=== PATIENT | female | born 1955 | race Hispanic/Latino ===

== ENCOUNTER 2019-01-21 21:12 | Inpatient (IN) | payer MEDICARE, MEDICAID ==
--- NOTE | 2019-01-21 21:25 | Emergency Department Report ---
Blank Doc - Documentation Documentation: This is a 63-year-old female that presents with uncontrolled HTN. Patient stated she believes she has a stroke. Exam: neuro exam normal. Normal strength. No focal neuro abnormalities. No one sided weakness. This initial assessment/diagnostic orders/clinical plan/treatment(s) is/are subject to change based on patient's health status, clinical progression and re- assessment by fellow clinical providers in the ED. Further treatment and workup at subsequent clinical providers discretion. Patient/guardians urged not to elope from the ED as their condition may be serious if not clinically assessed and managed. Initial orders include: 1- Patient sent to [facility] for further evaluation and treatment 2- labs 3- CT of head
[2019-01-21] MEDS ORDERED: NORMODYNE IV ONE (22:11)
[2019-01-21] MEDS ORDERED: ASPIRIN PO ONE (22:14)
--- NOTE | 2019-01-21 22:14 | Cat Scan Report ---
PROCEDURE: CT HEAD/BRAIN WO CON TECHNIQUE: CT images of the head were obtained without the use of IV contrast HISTORY: Stroke symptoms COMPARISONS: None available FINDINGS: No CT evidence of intracranial mass, hemorrhage, acute territorial infarction, or hydrocephalus. Ther e is asymmetric white matter low density in the left frontoparietal region, compatible with chronic i nfarct. There is also focal encephalomalacia in the posterior left occipital lobe. There is no CT edgardo dence of acute intracranial hemorrhage, mass, hydrocephalus, or acute territorial infarction. Intracr anial arteries are symmetric in density. Calvarium is intact. The visualized paranasal sinuses and ma stoids are aerated. IMPRESSION: Chronic ischemic changes. No CT evidence of acute intracranial abnormality. This document is electronically signed by Nava Walton MD., January 21 2019 10:12:12 PM ET
--- NOTE | 2019-01-21 22:15 | Emergency Department Report ---
ED Neuro Deficit HPI - General Chief Complaint: Neuro Symptoms/Deficit Stated Complaint: ELEVATED BLOOD PRESSURE Time Seen by Provider: 01/21/19 21:22 Source: patient Mode of arrival: Ambulatory Limitations: No Limitations - History of Present Illness Initial Comments: * Patient is a 63-year-old female past history of hypertension and previous CVA with right-sided deficit in 2006 with probable stenting to the left carotid who is presenting with right sided numbness and mild weakness for the past 2 hours. Patient states that throughout before arrival she was sitting at home watching television she started feeling numb sensation in the right arm or right leg. Patient states she has weakness that is mild. Patient also states she has a headache as 6 out of 10 in severity globally. Patient hasn't A she is speaking. Patient feels as though she is in the early stages of a stroke and wrote this as her chief complaint. Patient denies any nausea vomiting fevers chills neck Stiffness, cold or congestion at this time. - Related Data Allergies/Adverse Reactions: Allergies Allergy/AdvReac Type Severity Reaction Status Date / Time iodine Allergy Hives Verified 01/21/19 22:50 Penicillins Allergy Anaphylaxis Verified 01/21/19 21:27 Sulfa (Sulfonamide Allergy Hives Verified 01/21/19 21:27 Antibiotics) ED Review of Systems ROS: Stated complaint: ELEVATED BLOOD PRESSURE Other details as noted in HPI Comment: All other systems reviewed and negative ED Past Medical Hx - Past Medical History Previous Medical History?: Yes Hx Hypertension: Yes Hx CVA: Yes (TIA) Hx Diabetes: Yes Hx Psychiatric Treatment: Yes (Depression) - Surgical History Past Surgical History?: Yes Hx Open Heart Surgery: Yes Additional Surgical History: Hysterectomy - Social History Smoking Status: Former Smoker Substance Use Type: None ED Neuro Physical Exam - General Limitations: No Limitations General appearance: alert, in no apparent distress Suspected Stroke: Yes - Head Head exam: Present: atraumatic, normocephalic - Eye Eye exam: Present: normal appearance - ENT ENT exam: Present: mucous membranes moist - Neck Neck exam: Present: normal inspection. Absent: tenderness, meningismus - Respiratory Respiratory exam: Present: normal lung sounds bilaterally. Absent: respiratory distress, wheezes, rales - Cardiovascular Cardiovascular Exam: Present: regular rate, normal rhythm, normal heart sounds. Absent: systolic murmur, diastolic murmur, rubs, gallop - GI/Abdominal GI/Abdominal exam: Present: soft, normal bowel sounds. Absent: distended, tenderness, guarding - Extremities Exam Extremities exam: Present: normal inspection - Back Exam Back exam: Present: normal inspection - Neurological Exam Neurological exam: Present: alert, oriented X3, CN II-XII intact, normal gait, motor sensory deficit - NIHSS Assessment Interval: Baseline 1a. Level of Consciousness: alert/keenly responsive 1b. LOC Questions: answers both correctly 1c. LOC Commands: performs tasks correctly 2. Best Gaze: normal 3. Visual: no visual loss 4. Facial Palsy: normal symmetrical movement 5b. Motor Arm Right: drift 5a. Motor Arm Left: no drift 6a. Motor Leg Left: no drift 6b. Motor Leg Right: drift 7. Limb Ataxia: absent 8. Sensory: mild/moderate sensory loss 9. Best Language: no aphasia 10. Dysarthria: normal 11. Extinction/Inattention: no abnormality Total Score: 3 Stroke Severity: Minor Stroke - Psychiatric Psychiatric exam: Present: normal affect, normal mood - Skin Skin exam: Present: warm, dry, intact, normal color. Absent: rash ED Course Vital Signs 01/21/19 01/21/19 21:22 22:46 Temperature 98.1 F Pulse Rate 77 79 Respiratory 18 Rate Blood Pressure 162/72 235/90 O2 Sat by Pulse 99 Oximetry - Reevaluation(s) Reevaluation #1: 01/21/19 22:15 Patient was seen by telephone neurology who had a NIH score 5. The discussion was had between the toe neurologist and patient and suggested that the patient to have TPA. Patient is a and O 3 and has refused TPA. Per my conversation with Tylenol neurology patient should receive aspirin and a CTA of the head and neck to rule out fresh clot that could be potentially remove so she is in the window. - Lab Data Result diagrams: 01/21/19 22:04 01/21/19 22:04 Lab Results 01/21/19 01/21/19 01/21/19 Range/Units 21:55 22:04 22:04 WBC 6.8 (4.5-11.0) K/mm3 RBC 3.81 (3.65-5.03) M/mm3 Hgb 12.1 (10.1-14.3) gm/dl Hct 35.3 (30.3-42.9) % MCV 93 (79-97) fl MCH 32 (28-32) pg MCHC 34 (30-34) % RDW 13.4 (13.2-15.2) % Plt Count 115 L (140-440) K/mm3 Lymph % (Auto) 26.6 (13.4-35.0) % Cherokee % (Auto) 8.2 H (0.0-7.3) % Eos % (Auto) 1.2 (0.0-4.3) % Baso % (Auto) 0.7 (0.0-1.8) % Lymph # 1.8 (1.2-5.4) K/mm3 [place] # 0.6 (0.0-0.8) K/mm3 Eos # 0.1 (0.0-0.4) K/mm3 Baso # 0.0 (0.0-0.1) K/mm3 Seg Neutrophils % 63.3 (40.0-70.0) % Seg Neutrophils # 4.3 (1.8-7.7) K/mm3 PT (12.2-14.9) Sec. INR (0.87-1.13) APTT (24.2-36.6) Sec. Thrombin Time (15.1-19.6) Sec. Sodium 137 (137-145) mmol/L Potassium 3.9 (3.6-5.0) mmol/L Chloride 99.4 (98-107) mmol/L Carbon Dioxide 24 (22-30) mmol/L Anion Gap 18 mmol/L BUN 23 H (7-17) mg/dL Creatinine 1.1 (0.7-1.2) mg/dL Estimated GFR 50 ml/min BUN/Creatinine Ratio 21 % Glucose 353 H (65-100) mg/dL POC Glucose 316 H (70-105) Calcium 9.1 (8.4-10.2) mg/dL Total Creatine Kinase (30-135) units/L CK-MB (CK-2) (0.0-4.0) ng/mL CK-MB (CK-2) Rel Index (0-4) Troponin T (0.00-0.029) ng/mL Plasma/Serum Alcohol (0-0.07) % 01/21/19 01/21/19 01/21/19 Range/Units 22:04 22:04 22:04 WBC (4.5-11.0) K/mm3 RBC (3.65-5.03) M/mm3 Hgb (10.1-14.3) gm/dl Hct (30.3-42.9) % MCV (79-97) fl MCH (28-32) pg MCHC (30-34) % RDW (13.2-15.2) % Plt Count (140-440) K/mm3 Lymph % (Auto) (13.4-35.0) % Cherokee % (Auto) (0.0-7.3) % Eos % (Auto) (0.0-4.3) % Baso % (Auto) (0.0-1.8) % Lymph # (1.2-5.4) K/mm3 Cherokee # (0.0-0.8) K/mm3 Eos # (0.0-0.4) K/mm3 Baso # (0.0-0.1) K/mm3 Seg Neutrophils % (40.0-70.0) % Seg Neutrophils # (1.8-7.7) K/mm3 PT 12.5 (12.2-14.9) Sec. INR 0.88 (0.87-1.13) APTT 22.9 L (24.2-36.6) Sec. Thrombin Time 17.9 (15.1-19.6) Sec. Sodium (137-145) mmol/L Potassium (3.6-5.0) mmol/L Chloride (98-107) mmol/L Carbon Dioxide (22-30) mmol/L Anion Gap mmol/L BUN (7-17) mg/dL Creatinine (0.7-1.2) mg/dL Estimated GFR ml/min BUN/Creatinine Ratio % Glucose (65-100) mg/dL POC Glucose (70-105) Calcium (8.4-10.2) mg/dL Total Creatine Kinase 33 (30-135) units/L CK-MB (CK-2) 1.7 (0.0-4.0) ng/mL CK-MB (CK-2) Rel Index 5.1 H (0-4) Troponin T < 0.010 (0.00-0.029) ng/mL Plasma/Serum Alcohol < 0.01 (0-0.07) % - EKG Data -: EKG Interpreted by De EKG shows normal: sinus rhythm, axis, intervals, QRS complexes, ST-T waves Rate: normal Interpretation: LVH - Radiology Data [facility] [address] [id number] Cat Scan Report Signed with Addenda Patient: JOSHUA DURHAM MR#: [id number] : 1955 Acct:[id number] Age/Sex: 63 / F ADM Date: 01/21/19 Loc: ED Attending Dr: Ordering Physician: TEENA GRANGER MD Date of Service: 01/21/19 Procedure(s): CT head/brain wo con Accession Number(s): [id number] cc: TEENA GRANGER MD ADDENDUM ADDENDUM: Findings were relayed to Dr. Granger by telephone at 9:12 PM central standard time on 01/21/2019 This document is electronically signed by aNva Walton MD., January 21 2019 10:20:10 PM ET Addendum Transcribed By: [facility] Addendum Dictated By: NAVA WALTON M.D. Addendum Electronically Authenticated By: NAVA WALTON M.D. Addendum Signed Date/Time: 01/21/192221 DD/ TD/TT: 01/21/19 PROCEDURE: CT HEAD/BRAIN WO CON TECHNIQUE: CT images of the head were obtained without the use of IV contrast HISTORY: Stroke symptoms COMPARISONS: None available FINDINGS: No CT evidence of intracranial mass, hemorrhage, acute territorial infarction, or hydrocephalus. There is asymmetric white matter low density in the left frontoparietal region, compatible with chronic infarct. There is also focal encephalomalacia in the posterior left occipital lobe. There is no CT evidence of acute intracranial hemorrhage, mass, hydrocephalus, or acute territorial infarction. Intracranial arteries are symmetric in density. Calvarium is intact. The visualized paranasal sinuses and mastoids are aerated. IMPRESSION: Chronic ischemic changes. No CT evidence of acute intracranial abnormality. This document is electronically signed by Nava Walton MD., January 21 2019 10:12:12 PM ET Transcribed By: [facility] Dictated By: NAVA WALTON M.D. Electronically Authenticated By: NAVA WALTON M.D. Signed Date/Time: 01/21/192213 DD/ 58 TD/TT: 01/21/192199 - Medical Decision Making The patient is a 63-year-old female is presenting with right-sided weakness and numbness. Patient refused TPA and she is a and O 3. Patient's stability admitted to the hospitalist service under Dr. Neal. Total neurology suggested a CTA of the head and neck be performed however the patient has allergy to dye which causes anaphylaxis. Critical care attestation.: If time is entered above; I have spent that time in minutes in the direct care of this critically ill patient, excluding procedure time. ED Disposition Clinical Impression: Thrombosis of left middle cerebral artery CVA (cerebral vascular accident) Qualifiers: CVA mechanism: unspecified Qualified Code(s): I63.9 - Cerebral infarction, unspecified Disposition: DC-09 OP ADMIT IP TO THIS HOSP Is pt being admited?: Yes Does the pt Need Aspirin: No Condition: Stable Time of Disposition: 23:15
[2019-01-21 22:22] LABS: Eosinophils % (Auto) 1.2 % (0.0-4.3); Hematocrit 35.3 % (30.3-42.9); Hemoglobin 12.1 gm/dl (10.1-14.3); Lymphocytes % (Auto) 26.6 % (13.4-35.0); Mean Corpuscular HGB Conc 34 % (30-34); Mean Corpuscular Volume 93 fl (79-97); Monocytes % (Auto) 8.2 % (0.0-7.3); Platelet Count 115 K/mm3 (140-440); Red Blood Count 3.81 M/mm3 (3.65-5.03); Red Cell Distribution Width 13.4 % (13.2-15.2)
[2019-01-21 22:23] LABS: Basophils % (Auto) 0.7 % (0.0-1.8); Eosinophils # (Auto) 0.1 K/mm3 (0.0-0.4); INR 0.88 (0.87-1.13); Lymphocytes # (Auto) 1.8 K/mm3 (1.2-5.4); Monocytes # (Auto) 0.6 K/mm3 (0.0-0.8)
[2019-01-21 22:24] LABS: Partial Thromboplastin Time 22.9 Sec. (24.2-36.6); Thrombin Time 17.9 Sec. (15.1-19.6)
[2019-01-21] MEDS ORDERED: BABY ASPIRIN PO ONE (22:26)
--- NOTE | 2019-01-21 22:26 | Emergency Department Report ---
ED Neuro Deficit HPI - General Chief Complaint: Neuro Symptoms/Deficit Stated Complaint: ELEVATED BLOOD PRESSURE Time Seen by Provider: 01/21/19 21:22 Source: patient Mode of arrival: Stretcher Limitations: No Limitations - History of Present Illness Initial Comments: [facility] TeleStroke Metrics: LKW: 1900 Door Time: 2111 [facility] Contacted: 2153 [facility] at Bedside: 2158 NIHSS: 2203 Decision on Alteplase: Patient has deferred IV alteplase administration due to concerns of bleeding. Interventional Candidate: Likely not a candidate as her symptoms are not consistent with a large vessel proximal occlusion. No evidence of cortical signs to include vision loss, neglect, or aphasia. Chief Complaint: Right-sided weakness and numbness HPI: Asked to see this patient in telemedicine consultation. ?Consultation was performed with assistance of ancillary / medical staff at bedside. Verbal consent to perform the examination with telemedicine was obtained. Patient agreed to proceed with the consultation. 63-year-old right-handed white female who comes to the ER by EMS as a stroke alert for acute right-sided weakness and numbness. Patient reports a history of prior left hemisphere stroke in 2006 where she had right-sided weakness. She states that after aggressive therapy, she has mostly recovered from her previous stroke. She also states that she had some type of stent placed in her neck around the time of her stroke. However, she states that her stroke happened right after a heart attack. Patient is currently on Plavix. Patient also states she recently quit smoking about 2 to 3 weeks ago. Patient states that around 7 PM, she had severe right-sided weakness and numbness again. She states that over the last 3 days, she has been dealing with significant elevations in her blood pressures with systolics in the 200s. However, currently she is around 162/[address] in the ER. Head CT came back negative. I reviewed with the patient about the availability of IV alteplase. I reviewed with her about some of the potential side effects of IV alteplase to include an approximate 6% risk of symptomatic intracranial hemorrhage, internal bleeding, and/or angioedema. I also reviewed with her about some of the potential benefits of IV alteplase to include an approximate 30% chance of improvement at 3 months with the medication versus an approximate 20% chance of improvement at 3 months without the medication. At the end of the day, the patient was concerned about internal bleeding. She therefore had deferred IV alteplase administration. PMH: Hypertension, diabetes mellitus, coronary artery disease with prior UT and CABG, and prior left hemisphere stroke in 2006 with possible left ICA stenting SOC: Patient recently quit smoking 2 to 3 weeks ago. She denies any illicit drug use or alcohol abuse. She lives alone. FMH: Positive for stroke. ROS: 13 point review systems were reviewed with the patient, and are all negative with the exception of the aforementioned in the history of present illness. VS: Temperature is 98.1 F, pulse 77, respiration 18, blood pressure 162/72, oxygen saturation 9 9%, weight 43 kg Exam: Patient is in no apparent distress. Patient appears as stated age. No obvious acute respiratory or cardiac distress. Patient is well groomed and well-nourished. 1a- LOC: Keenly responsive - 0 1b- LOC questions: Answers both questions correctly - 0 1c- LOC commands- Performs both tasks correctly- 0 2- Gaze: Normal; no gaze paresis or gaze deviation - 0 3- Visual Ye: normal, no Visual field deficit - 0 4- Facial movements: no facial palsy - 0 5- Upper limb motor right arm drift - 2 6- Lower limb motor right leg drift - 2 7- Limb Coordination: absent ataxia - 0 8- Sensory: right hemisensory loss - 1 9- Language - No aphasia - 0 10- Speech - No dysarthria -0 11- Neglect / Extinction - none found - 0 NIHSS score: 5 Diagnostic Data: Blood glucose 316 CT of the head showed no acute intracranial process. Medical Data Reviewed: 1.Data?reviewed include clinical labs, radiology,?and medical tests; 2.Tests?results discussed w/performing or interpreting physician; 3.Obtaining/reviewing old medical records; 4.Obtaining?case history from another source; 5.Independent?review of image, tracing, or specimen. Medical Decision Making: - Extensive number of diagnosis or management options are considered below. - Extensive amount of complex data reviewed. - High risk of complication and/or morbidity or mortality are associated with differential diagnostic considerations below. - There may be?uncertain?outcome and increased probability of prolonged fun ctional impairment or high probability of severe prolonged functional impairment associated with some of these differential diagnosis. Differential Diagnosis for Stroke: 1.?Cardioembolic?stroke 2. Small vessel disease/lacune 3. Thromboembolic, [id number] mechanism 4.?Hypercoagulable?state-related infarct 5. Transient ischemic attack 6. Thrombotic mechanism, large artery disease Assessment: 1. Probable acute left subcortical stroke due to chronic small vessel disease 2. Prior left hemispheric stroke in 2006 with possible left ICA stenting 3. Hypertension 4. Diabetes mellitus 5. Coronary artery disease status post CABG 6. Recent tobacco abuse Recommendations: Check CTA of the head and neck to evaluate her intracranial and extracranial blood vessels. Patient can be admitted to the hospital for further work-up of her symptoms. Maintain the patient on a baby aspirin and Plavix. Allow permissive hypertension. Check MRI of the brain to rule out any acute intracranial process. Check echocardiogram to gauge her cardiac function. Maintain the patient on telemetry to look for paroxysmal atrial fibrillation. Consult local neurology team to assist with evaluation and management. Consult PT, OT, and ST. Continue supportive care. Thank you for allowing [facility] to participate in the care of your patient. Please call me, Dr. Childs, with any questions at [phone]. Case discussed with the ER staff and Dr. Granger. Critical Care notation: I was called to see this critical patient emergently. I personally evaluated this critical patient for acute stroke evaluation, and determining their eligibility for IV Alteplase and interventional therapies. I have spent approximately 13 minutes with the patient, including time at bedside, time discussing the case with other physicians, reviewing plan of care, and time independently reviewing the records and scans. -: Sudden Last Observed Normal: 19:00 Location: right arm, right leg Presenting Symptoms: Present: Weak/Paralyzed One Side - Related Data Allergies/Adverse Reactions: Allergies Allergy/AdvReac Type Severity Reaction Status Date / Time Penicillins Allergy Anaphylaxis Verified 01/21/19 21:27 Sulfa (Sulfonamide Allergy Hives Verified 01/21/19 21:27 Antibiotics) ED Review of Systems ROS: Stated complaint: ELEVATED BLOOD PRESSURE Other details as noted in HPI ED Past Medical Hx - Past Medical History Previous Medical History?: Yes Hx Hypertension: Yes Hx CVA: Yes (TIA) Hx Diabetes: Yes Hx Psychiatric Treatment: Yes (Depression) - Surgical History Past Surgical History?: Yes Hx Open Heart Surgery: Yes Additional Surgical History: Hysterectomy - Social History Smoking Status: Former Smoker Substance Use Type: None ED Neuro Physical Exam - General Limitations: No Limitations Suspected Stroke: Yes - NIHSS Assessment Interval: Baseline 1a. Level of Consciousness: alert/keenly responsive 1b. LOC Questions: answers both correctly 1c. LOC Commands: performs tasks correctly 2. Best Gaze: normal 3. Visual: no visual loss 4. Facial Palsy: normal symmetrical movement 5b. Motor Arm Right: some gravity effort 5a. Motor Arm Left: no drift 6a. Motor Leg Left: no drift 6b. Motor Leg Right: some gravity effort 7. Limb Ataxia: absent 8. Sensory: mild/moderate sensory loss 9. Best Language: no aphasia 10. Dysarthria: normal 11. Extinction/Inattention: no abnormality Total Score: 5 Stroke Severity: Moderate Stroke ED Course Vital Signs 01/21/19 21:22 Temperature 98.1 F Pulse Rate 77 Respiratory 18 Rate Blood Pressure 162/72 O2 Sat by Pulse 99 Oximetry - Lab Data Lab Results 01/21/19 Range/Units 21:55 POC Glucose 316 H (70-105) Critical care attestation.: If time is entered above; I have spent that time in minutes in the direct care of this critically ill patient, excluding procedure time. ED Disposition Clinical Impression: Thrombosis of left middle cerebral artery Disposition: DC-09 OP ADMIT IP TO THIS HOSP Is pt being admited?: Yes Does the pt Need Aspirin: Yes Condition: Stable
[2019-01-21 22:28] LABS: Calcium 9.1 mg/dL (8.4-10.2)
[2019-01-21 22:30] LABS: Creatine Kinase MB 1.7 ng/mL (0.0-4.0)
[2019-01-21 23:49] LABS: Amphetamine Screen,Urine PRESUMPTIVE NEGATIVE; Benzodiazepines Screen,Urine PRESUMPTIVE NEGATIVE; Cannabinoid Screen,Urine PRESUMPTIVE NEGATIVE; Cocaine Screen,Urine PRESUMPTIVE NEGATIVE; Methadone Screen,Urine PRESUMPTIVE NEGATIVE; Opiate Screen,Urine PRESUMPTIVE NEGATIVE
[2019-01-21] MEDS ORDERED: MILK OF MAGNESIA PO PRN (23:51)
[2019-01-21] MEDS ORDERED: REGLAN PO PRN (23:51)
[2019-01-21] MEDS ORDERED: PHENERGAN PR PRN (23:51)
[2019-01-21] MEDS ORDERED: DULCOLAX PR PRN (23:51)
[2019-01-21] MEDS ORDERED: SODIUM CHLORIDE FLUSH SYRINGE 10 ML IV PRN (23:51)
[2019-01-21] MEDS ORDERED: D50W (25GM) Syringe IV PRN (23:51)
[2019-01-21] MEDS ORDERED: ZOFRAN IV PRN (23:51)
[2019-01-21] MEDS ORDERED: TYLENOL PO PRN (23:51)
[2019-01-21 23:53] LABS: Bacteria,Urine 1+ /HPF (Negative); Bilirubin,Urine NEG (Negative); Blood,Urine NEG (Negative); Color,Urine Straw (Yellow); Urobilinogen,Urine < 2.0 mg/dL (<2.0)
[2019-01-22] MEDS ORDERED: APRESOLINE IV ONE (00:19)
--- NOTE | 2019-01-22 00:26 | History and Physical Report ---
<ARGELIA OCHOA - Last Filed: 01/22/19 04:23> History of Present Illness Date of examination: 01/21/19 Date of admission: 01/21/19 23:08 Chief complaint: Right-sided weakness 1 Day History of present illness: Patient is a 63-year-old female with past medical history of prior CVA 2006, CAD/CABG 2006, A. fib, DM type II, hyperlipidemia, kidney disease who presents to the ER with complaints of right-sided weakness started at 7 PM tonight. Patient states that the symptoms started while she was home, patient states that she noticed that she was unable to move her right arm and leg despite attempt. Patient denies any acute illness, she states that she had similar episodes in 2006 after a heart attack which leads to open heart surgery. Patient denies any chest pain, denies shortness of breath, Denies any headache, denies any loss of peripheral function status, denies any confusion, denies dizziness. In the ER patient had a CT scan of the brain that showed chronic infarct but no acute infarction or mass effect. Patient was admitted for further evaluation of her stroke-like symptoms. Past History Past Medical History: CAD, diabetes, hypertension, hyperlipidemia, other (history of kidney disease) Past Surgical History: CABG Social history: no significant social history, lives with family Family history: no significant family history, CAD (father), hypertension, stroke (younger brother), other (Sister with kidney disease) Medications and Allergies Allergies Allergy/AdvReac Type Severity Reaction Status Date / Time iodine Allergy Hives Verified 01/21/19 22:50 Penicillins Allergy Anaphylaxis Verified 01/21/19 21:27 Sulfa (Sulfonamide Allergy Hives Verified 01/21/19 21:27 Antibiotics) Home Medications Medication Instructions Recorded Confirmed Last Taken Type Clopidogrel Bisulfate [Clopidogrel] 01/21/19 01/21/19 History Active Meds: Active Medications Acetaminophen (Tylenol) 650 mg PO Q4H PRN PRN Reason: Pain, Mild (1-3) Atorvastatin Calcium (Lipitor) 40 mg PO QHS [facility] Bisacodyl (Dulcolax) 10 mg WI QDAY PRN PRN Reason: Constipation Dextrose (D50w (25gm) Syringe) 50 ml IV PRN PRN PRN Reason: Hypoglycemia Enoxaparin Sodium (Lovenox) 40 mg SUB-Q QDAY [facility] Famotidine (Pepcid) 20 mg IV BID [facility] Insulin Glargine (Lantus) 10 units SUB-Q QHS [facility] Insulin Human Lispro (Humalog) 0 unit SUB-Q ACHS [facility]; Protocol Magnesium Hydroxide (Milk Of Magnesia) 30 ml PO Q4H PRN PRN Reason: Constipation Metoclopramide HCl (Reglan) 10 mg PO Q6H PRN PRN Reason: Nausea And Vomiting Ondansetron HCl (Zofran) 4 mg IV Q8H PRN PRN Reason: Nausea And Vomiting Promethazine HCl (Phenergan) 25 mg WI Q6H PRN PRN Reason: Nausea And Vomiting Sodium Chloride (Sodium Chloride Flush Syringe 10 Ml) 10 ml IV PRN PRN PRN Reason: LINE FLUSH Review of Systems Neurological: weakness (right side) Exam - Constitutional Vitals: Temp Pulse Resp BP Pulse Ox 98.1 F 67 18 233/70 98 01/21/19 21:22 01/21/19 23:24 01/21/19 23:24 01/21/19 23:24 01/21/19 23:24 General appearance: Present: no acute distress - EENT Eyes: Present: EOM intact ENT: hearing intact - Neck Neck: Present: normal ROM - Respiratory Respiratory effort: normal Respiratory: bilateral: CTA - Cardiovascular Rhythm: irregularly irregular - Extremities Extremities: no ischemia Peripheral Pulses: within normal limits - Abdominal General gastrointestinal: Present: soft, non-tender, non-distended Female genitourinary: Present: deferred - Rectal Rectal Exam: deferred - Integumentary Integumentary: Present: dry - Musculoskeletal Musculoskeletal: right sided weakness - Psychiatric Psychiatric: appropriate mood/affect - Neurologic Neurologic: focal deficits Results - Labs CBC & Chem 7: 01/21/19 22:04 01/21/19 22:04 Labs: Laboratory Last Values WBC 6.8 K/mm3 (4.5-11.0) 01/21/19 22:04 RBC 3.81 M/mm3 (3.65-5.03) 01/21/19 22:04 Hgb 12.1 gm/dl (10.1-14.3) 01/21/19 22:04 Hct 35.3 % (30.3-42.9) 01/21/19 22:04 MCV 93 fl (79-97) 01/21/19 22:04 MCH 32 pg (28-32) 01/21/19 22:04 MCHC 34 % (30-34) 01/21/19 22:04 RDW 13.4 % (13.2-15.2) 01/21/19 22:04 Plt Count 115 K/mm3 (140-440) L 01/21/19 22:04 Lymph % (Auto) 26.6 % (13.4-35.0) 01/21/19 22:04 Randall % (Auto) 8.2 % (0.0-7.3) H 01/21/19 22:04 Eos % (Auto) 1.2 % (0.0-4.3) 01/21/19 22:04 Baso % (Auto) 0.7 % (0.0-1.8) 01/21/19 22:04 Lymph # 1.8 K/mm3 (1.2-5.4) 01/21/19 22:04 Randall # 0.6 K/mm3 (0.0-0.8) 01/21/19 22:04 Eos # 0.1 K/mm3 (0.0-0.4) 01/21/19 22:04 Baso # 0.0 K/mm3 (0.0-0.1) 01/21/19 22:04 Seg Neutrophils % 63.3 % (40.0-70.0) 01/21/19 22:04 Seg Neutrophils # 4.3 K/mm3 (1.8-7.7) 01/21/19 22:04 PT 12.5 Sec. (12.2-14.9) 01/21/19 22:04 INR 0.88 (0.87-1.13) 01/21/19 22:04 APTT 22.9 Sec. (24.2-36.6) L 01/21/19 22:04 Thrombin Time 17.9 Sec. (15.1-19.6) 01/21/19 22:04 Sodium 137 mmol/L (137-145) 01/21/19 22:04 Potassium 3.9 mmol/L (3.6-5.0) 01/21/19 22:04 Chloride 99.4 mmol/L (98-107) 01/21/19 22:04 Carbon Dioxide 24 mmol/L (22-30) 01/21/19 22:04 Anion Gap 18 mmol/L 01/21/19 22:04 BUN 23 mg/dL (7-17) H 01/21/19 22:04 Creatinine 1.1 mg/dL (0.7-1.2) 01/21/19 22:04 Estimated GFR 50 ml/min 01/21/19 22:04 BUN/Creatinine Ratio 21 % 01/21/19 22:04 Glucose 353 mg/dL (65-100) H 01/21/19 22:04 POC Glucose 316 (70-105) H 01/21/19 21:55 Calcium 9.1 mg/dL (8.4-10.2) 01/21/19 22:04 Total Creatine Kinase 33 units/L (30-135) 01/21/19 22:04 CK-MB (CK-2) 1.7 ng/mL (0.0-4.0) 01/21/19 22:04 CK-MB (CK-2) Rel Index 5.1 (0-4) H 01/21/19 22:04 Troponin T < 0.010 ng/mL (0.00-0.029) 01/21/19 22:04 Urine Color Straw (Yellow) 01/21/19 23:25 Urine Turbidity Clear (Clear) 01/21/19 23:25 Urine pH 7.0 (5.0-7.0) 01/21/19 23:25 Ur Specific [place] 1.007 (1.003-1.030) 01/21/19 23:25 Urine Protein 30 mg/dl mg/dL (Negative) 01/21/19 23:25 Urine Glucose (UA) >=500 mg/dL (Negative) 01/21/19 23:25 Urine Ketones Tr mg/dL (Negative) 01/21/19 23:25 Urine Blood Neg (Negative) 01/21/19 23:25 Urine Nitrite Neg (Negative) 01/21/19 23:25 Urine Bilirubin Neg (Negative) 01/21/19 23:25 Urine Urobilinogen < 2.0 mg/dL (<2.0) 01/21/19 23:25 Ur Leukocyte Esterase Neg (Negative) 01/21/19 23:25 Urine WBC (Auto) 1.0 /HPF (0.0-6.0) 01/21/19 23:25 Urine RBC (Auto) 1.0 /HPF (0.0-6.0) 01/21/19 23:25 U Epithel Cells (Auto) 5.0 /HPF (0-13.0) 01/21/19 23:25 Urine Bacteria (Auto) 1+ /HPF (Negative) 01/21/19 23:25 Urine Opiates Screen Presumptive negative 01/21/19 23:25 Urine Methadone Screen Presumptive negative 01/21/19 23:25 Ur Barbiturates Screen Presumptive negative 01/21/19 23:25 Ur Phencyclidine Scrn Presumptive negative 01/21/19 23:25 Ur Amphetamines Screen Presumptive negative 01/21/19 23:25 U Benzodiazepines Scrn Presumptive negative 01/21/19 23:25 Urine Cocaine Screen Presumptive negative 01/21/19 23:25 U Marijuana (THC) Screen Presumptive negative 01/21/19 23:25 Drugs of Abuse Note Disclamer 01/21/19 23:25 Plasma/Serum Alcohol < 0.01 % (0-0.07) 01/21/19 22:04 Assessment and Plan Assessment and plan: 1. Acute stroke 2. Right-sided weakness (due to stroke) 3. History of prior stroke 2006 4. CAD/s/p CABG 2006 5. A. fib (rate controlled) 6. DM type II (blood glucose uncontrolled) 7. Hyperlipidemia 8. History of kidney disease (creatinine at baseline) 9. Dehydration Plan: Patient is admitted for acute CVA MRI of the brain to follow up CTs Echocardiogram Neurology consult Keep NPO until bedside swallow study Keep target SBP > than 170 Start statin, aspirin, beta ad, DEMETRIUS Accu-Chek ACHS with insulin per sliding scale Tight blood glucose control Resume home meds when available PT/OT to evaluate for gait training in a.m. Case management for DC planning Further plan per hospital course/neurology consult recommendations Plan discussed with patient's voice understanding Patient's condition and plan of care D/W with Dr. Neal Advance Directives: Yes VTE prophylaxis?: Chemical Plan of care discussed with patient/family: Yes <ROSI NEAL - Last Filed: 01/22/19 05:31> History of Present Illness Date of admission: 01/21/19 23:08 Medications and Allergies Active Meds: Active Medications Acetaminophen (Tylenol) 650 mg PO Q4H PRN PRN Reason: Pain, Mild (1-3) Atorvastatin Calcium (Lipitor) 40 mg PO QHS [facility] Bisacodyl (Dulcolax) 10 mg WI QDAY PRN PRN Reason: Constipation Clopidogrel Bisulfate (Plavix) 75 mg PO QDAY [facility] Dextrose (D50w (25gm) Syringe) 50 ml IV PRN PRN PRN Reason: Hypoglycemia Enoxaparin Sodium (Lovenox) 40 mg SUB-Q QDAY [facility] Famotidine (Pepcid) 20 mg IV BID [facility] Nicardipine HCl 50 mg/ Sodium (Chloride) 250 mls @ 25 mls/hr IV TITR [facility]; Protocol Last Admin: 01/22/19 04:04 Dose: 5 mg/hr, 25 mls/hr Documented by: Insulin Glargine (Lantus) 10 units SUB-Q QHS [facility] Insulin Human Lispro (Humalog) 0 unit SUB-Q ACHS [facility]; Protocol Magnesium Hydroxide (Milk Of Magnesia) 30 ml PO Q4H PRN PRN Reason: Constipation Metoclopramide HCl (Reglan) 10 mg PO Q6H PRN PRN Reason: Nausea And Vomiting Ondansetron HCl (Zofran) 4 mg IV Q8H PRN PRN Reason: Nausea And Vomiting Promethazine HCl (Phenergan) 25 mg WI Q6H PRN PRN Reason: Nausea And Vomiting Sodium Chloride (Sodium Chloride Flush Syringe 10 Ml) 10 ml IV PRN PRN PRN Reason: LINE FLUSH Exam - Constitutional Vitals: Temp Pulse Resp BP Pulse Ox 98.1 F 78 14 226/92 98 01/21/19 21:22 01/22/19 04:00 01/22/19 04:00 01/22/19 04:00 01/21/19 23:24 Results - Labs CBC & Chem 7: 01/21/19 22:04 01/21/19 22:04 Labs: Laboratory Last Values WBC 6.8 K/mm3 (4.5-11.0) 01/21/19 22:04 RBC 3.81 M/mm3 (3.65-5.03) 01/21/19 22:04 Hgb 12.1 gm/dl (10.1-14.3) 01/21/19 22:04 Hct 35.3 % (30.3-42.9) 01/21/19 22:04 MCV 93 fl (79-97) 01/21/19 22:04 MCH 32 pg (28-32) 01/21/19 22:04 MCHC 34 % (30-34) 01/21/19 22:04 RDW 13.4 % (13.2-15.2) 01/21/19 22:04 Plt Count 115 K/mm3 (140-440) L 01/21/19 22:04 Lymph % (Auto) 26.6 % (13.4-35.0) 01/21/19 22:04 Randall % (Auto) 8.2 % (0.0-7.3) H 01/21/19 22:04 Eos % (Auto) 1.2 % (0.0-4.3) 01/21/19 22:04 Baso % (Auto) 0.7 % (0.0-1.8) 01/21/19 22:04 Lymph # 1.8 K/mm3 (1.2-5.4) 01/21/19 22:04 Randall # 0.6 K/mm3 (0.0-0.8) 01/21/19 22:04 Eos # 0.1 K/mm3 (0.0-0.4) 01/21/19 22:04 Baso # 0.0 K/mm3 (0.0-0.1) 01/21/19 22:04 Seg Neutrophils % 63.3 % (40.0-70.0) 01/21/19 22:04 Seg Neutrophils # 4.3 K/mm3 (1.8-7.7) 01/21/19 22:04 PT 12.5 Sec. (12.2-14.9) 01/21/19 22:04 INR 0.88 (0.87-1.13) 01/21/19 22:04 APTT 22.9 Sec. (24.2-36.6) L 01/21/19 22:04 Thrombin Time 17.9 Sec. (15.1-19.6) 01/21/19 22:04 Sodium 137 mmol/L (137-145) 01/21/19 22:04 Potassium 3.9 mmol/L (3.6-5.0) 01/21/19 22:04 Chloride 99.4 mmol/L (98-107) 01/21/19 22:04 Carbon Dioxide 24 mmol/L (22-30) 01/21/19 22:04 Anion Gap 18 mmol/L 01/21/19 22:04 BUN 23 mg/dL (7-17) H 01/21/19 22:04 Creatinine 1.1 mg/dL (0.7-1.2) 01/21/19 22:04 Estimated GFR 50 ml/min 01/21/19 22:04 BUN/Creatinine Ratio 21 % 01/21/19 22:04 Glucose 353 mg/dL (65-100) H 01/21/19 22:04 POC Glucose 316 (70-105) H 01/21/19 21:55 Calcium 9.1 mg/dL (8.4-10.2) 01/21/19 22:04 Total Creatine Kinase 33 units/L (30-135) 01/21/19 22:04 CK-MB (CK-2) 1.7 ng/mL (0.0-4.0) 01/21/19 22:04 CK-MB (CK-2) Rel Index 5.1 (0-4) H 01/21/19 22:04 Troponin T < 0.010 ng/mL (0.00-0.029) 01/21/19 22:04 Urine Color Straw (Yellow) 01/21/19 23:25 Urine Turbidity Clear (Clear) 01/21/19 23:25 Urine pH 7.0 (5.0-7.0) 01/21/19 23:25 Ur Specific [place] 1.007 (1.003-1.030) 01/21/19 23:25 Urine Protein 30 mg/dl mg/dL (Negative) 01/21/19 23:25 Urine Glucose (UA) >=500 mg/dL (Negative) 01/21/19 23:25 Urine Ketones Tr mg/dL (Negative) 01/21/19 23:25 Urine Blood Neg (Negative) 01/21/19 23:25 Urine Nitrite Neg (Negative) 01/21/19 23:25 Urine Bilirubin Neg (Negative) 01/21/19 23:25 Urine Urobilinogen < 2.0 mg/dL (<2.0) 01/21/19 23:25 Ur Leukocyte Esterase Neg (Negative) 04/18/19 23:25 Urine WBC (Auto) 1.0 /HPF (0.0-6.0) 01/21/19 23:25 Urine RBC (Auto) 1.0 /HPF (0.0-6.0) 01/21/19 23:25 U Epithel Cells (Auto) 5.0 /HPF (0-13.0) 01/21/19 23:25 Urine Bacteria (Auto) 1+ /HPF (Negative) 01/21/19 23:25 Urine Opiates Screen Presumptive negative 01/21/19 23:25 Urine Methadone Screen Presumptive negative 01/21/19 23:25 Ur Barbiturates Screen Presumptive negative 01/21/19 23:25 Ur Phencyclidine Scrn Presumptive negative 01/21/19 23:25 Ur Amphetamines Screen Presumptive negative 01/21/19 23:25 U Benzodiazepines Scrn Presumptive negative 01/21/19 23:25 Urine Cocaine Screen Presumptive negative 01/21/19 23:25 U Marijuana (THC) Screen Presumptive negative 01/21/19 23:25 Drugs of Abuse Note Disclamer 01/21/19 23:25 Plasma/Serum Alcohol < 0.01 % (0-0.07) 01/21/19 22:04 Assessment and Plan Assessment and plan: 63-year-old woman with a history of CVA, coronary artery disease, hypertension, diabetes comes emergency room with worsening right sided weakness and numbness. The blood pressure has been uncontrolled, unresponsive to IV medication, start Cardene drip and occurred to the ICU. Patient with acute CVA, refused TPA, Obtain MRI head and neck and consult neurology, critical care PTOT, start Plavix, statin
[2019-01-22] MEDS ORDERED: APRESOLINE ONE (00:51)
[2019-01-22] MEDS ORDERED: CARDENE 50 MG in NACL 0.9% 250ML 230 ML IV SCH (03:00)
[2019-01-22 05:44] LABS: Chol/HDL Ratio 3.08 %
[2019-01-22] MEDS: HumaLOG SUB-Q SCH ×4 (07:45→22:13)
[2019-01-22] MEDS ORDERED: HumuLIN R ONE (07:52)
[2019-01-22] MEDS ORDERED: PLAVIX ONE (08:29)
--- NOTE | 2019-01-22 09:25 | Consultation ---
History of Present Illness Consult date: 01/22/19 Requesting physician: ROSI CARRION History of present illness: Patient is a 63-year-old female with past medical history of prior CVA 2006, C AD/CABG 2006, A. fib, DM type II, hyperlipidemia, kidney disease who presents to the ER with complaints of right-sided weakness started at 7 PM tonight. Patient states that the symptoms started while she was home, patient states that she noticed that she was unable to move her right arm and leg despite attempt. Patient denies any acute illness, she states that she had similar episodes in 2006 after a heart attack which leads to open heart surgery. Patient denies any chest pain, denies shortness of breath, Denies any headache, denies any loss of peripheral function status, denies any confusion, denies dizziness. In the ER patient had a CT scan of the brain that showed chronic infarct but no acute infarction or mass effect. Patient was admitted for further evaluation of her stroke-like symptoms. She was started on nicardipine infusion for her blood pressure control and admitted to the ICU I have been consulted for critical care managment. Patient was seen and examined. Vitals, labs, medications, chart and imaging reviewed. She is no distress at this time. Past medical history: Medical: Hypertension, anxiety, asthma, blockage of both leg arteries but no procedure needed Surgeries: Some teeth extractions, tonsils as a child, coronary artery bypass graft for 2 vessels in April 2007 and left carotid stent March 2007, had a walker but lost when moving her residents. No falls lately. 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 Quit smoking 3 weeks ago, was smoking one half pack per day. No alcohol for 20 years. Never illicit drugs. Family history: Stroke fatal in her brother, fatal RI in her father, hypertension in 2 maternal aunts and paternal grandmother, no brain aneurysms. No epilepsy. Diabetes in 2 maternal first cousins and in her brother. Review of systems: Occasional headaches associated with hypertension or sinus problem. Lightheaded or spinning at times. Problems with memory for short-term and remote since 2006. No snoring and no positive in sleep, talks in her sleep at times, no napping or dozing but poor sleep since Xanax was stopped. Numbness and tingling in right arm and leg since her 2006 stroke. Past History Past Medical History: CAD, diabetes, hypertension, hyperlipidemia, other (history of kidney disease) Past Surgical History: CABG Social history: no significant social history, lives with family Family history: no significant family history, CAD (father), hypertension, stroke (younger brother), other (Sister with kidney disease) Medications and Allergies Allergies Allergy/AdvReac Type Severity Reaction Status Date / Time iodine Allergy Hives Verified 01/21/19 22:50 Penicillins Allergy Anaphylaxis Verified 01/21/19 21:27 Sulfa (Sulfonamide Allergy Hives Verified 01/21/19 21:27 Antibiotics) Home Medications Medication Instructions Recorded Confirmed Last Taken Type Carvedilol 25 mg PO BID 01/22/19 01/22/19 01/21/19 History 25mg Co Q-10 100 mg Softgel 100 mg PO QDAY 01/22/19 01/22/19 01/21/19 History Linagliptin [Tradjenta] 5 mg PO QDAY 01/22/19 01/22/19 01/21/19 History 5mg Lisinopril [Zestril TAB] 40 mg PO QDAY 01/22/19 01/22/19 01/21/19 History 40mg Rosuvastatin Calcium 20 mg PO QDAY 01/22/19 01/22/19 01/21/19 History 20mg Vitamin D3 2,000 UNIT CAP 50 mcg PO QDAY 01/22/19 01/22/19 01/21/19 History 50MCG buPROPion SR [Wellbutrin SR] 150 mg PO BID 01/22/19 01/22/19 01/21/19 History 150mg ALPRAZolam [Xanax TAB] 0.5 mg PO QAM PRN #7 tablet 01/26/19 Unknown Rx ALPRAZolam [Xanax TAB] 1 mg PO QHS PRN #7 tablet 01/26/19 Unknown Rx Aspirin EC [Aspirin Enteric Coated 81 mg PO QDAY #30 tablet 01/26/19 Unknown Rx TAB] Clopidogrel Bisulfate [Clopidogrel] 75 mg PO QDAY #30 tablet 01/26/19 Unknown Rx Insulin Aspart [Novolog] See Protocol SQ AC 30 Days ml 01/26/19 Unknown Rx Insulin Glargine [Lantus VIAL] 10 units SUB-Q QHS 30 Days units 01/26/19 Unknown Rx Labetalol [Normodyne TAB] 200 mg PO BID #60 tablet 01/26/19 Unknown Rx Active Meds: Active Medications Acetaminophen (Tylenol) 650 mg PO Q4H PRN PRN Reason: Pain, Mild (1-3) Atorvastatin Calcium (Lipitor) 40 mg PO QHS [facility] Bisacodyl (Dulcolax) 10 mg CO QDAY PRN PRN Reason: Constipation Clopidogrel Bisulfate (Plavix) 75 mg PO QDAY [facility] Dextrose (D50w (25gm) Syringe) 50 ml IV PRN PRN PRN Reason: Hypoglycemia Enoxaparin Sodium (Lovenox) 40 mg SUB-Q QDAY [facility] Famotidine (Pepcid) 20 mg IV BID [facility] Nicardipine HCl 50 mg/ Sodium (Chloride) 250 mls @ 25 mls/hr IV TITR [facility]; Protocol Last Titration: 01/22/19 05:00 Dose: 2.5 mg/hr, 12.5 mls/hr Documented by: Insulin Glargine (Lantus) 10 units SUB-Q QHS [facility] Insulin Human Lispro (Humalog) 0 unit SUB-Q ACHS [facility]; Protocol Last Admin: 01/22/19 07:45 Dose: 3 unit Documented by: Magnesium Hydroxide (Milk Of Magnesia) 30 ml PO Q4H PRN PRN Reason: Constipation Metoclopramide HCl (Reglan) 10 mg PO Q6H PRN PRN Reason: Nausea And Vomiting Ondansetron HCl (Zofran) 4 mg IV Q8H PRN PRN Reason: Nausea And Vomiting Promethazine HCl (Phenergan) 25 mg CO Q6H PRN PRN Reason: Nausea And Vomiting Sodium Chloride (Sodium Chloride Flush Syringe 10 Ml) 10 ml IV PRN PRN PRN Reason: LINE FLUSH Physical Examination Vital signs: Vital Signs Temp Pulse Resp BP Pulse Ox 98.1 F 77 18 162/72 99 01/21/19 21:22 01/21/19 21:22 01/21/19 21:22 01/21/19 21:22 01/21/19 21:22 General appearance: Present: no acute distress - EENT Eyes: Present: PERRL, EOM intact ENT: hearing intact, clear oral mucosa, dentition normal - Neck Neck: Present: supple, normal ROM - Respiratory Respiratory effort: normal Respiratory: bilateral: CTA - Cardiovascular Rhythm: regular Heart Sounds: Present: S1 & S2. Absent: gallop, rub - Extremities Extremities: no ischemia, No edema, Full ROM - Abdominal General gastrointestinal: soft, non-tender, non-distended, normal bowel sounds - Integumentary Integumentary: Present: clear, warm, dry - Neurologic Neurologic: CNII-XII intact, moves all extremities Results Results - Laboratory Findings CBC and BMP: 01/25/19 07:00 01/25/19 07:00 PT/INR, D-dimer PT 12.5 Sec. (12.2-14.9) 01/21/19 22:04 INR 0.88 (0.87-1.13) 01/21/19 22:04 Abnormal lab findings: Abnormal Labs 01/21/19 01/21/19 01/21/19 21:55 22:04 22:04 Plt Count 115 L [place] % (Auto) 8.2 H APTT BUN 23 H Glucose 353 H POC Glucose 316 H Hemoglobin A1c CK-MB (CK-2) Rel Index Cholesterol LDL Cholesterol Direct HDL Cholesterol 01/21/19 01/21/19 01/22/19 22:04 22:04 05:03 Plt Count [place] % (Auto) APTT 22.9 L BUN Glucose POC Glucose Hemoglobin A1c 10.2 H CK-MB (CK-2) Rel Index 5.1 H Cholesterol LDL Cholesterol Direct HDL Cholesterol 01/22/19 01/22/19 05:03 07:49 Plt Count [place] % (Auto) APTT BUN Glucose POC Glucose 230 H Hemoglobin A1c CK-MB (CK-2) Rel Index Cholesterol 213 H LDL Cholesterol Direct 144 H HDL Cholesterol 69 H Assessment and Plan Acute CVA,history of CVA in 2006. . Accelerated hypertension Atrial fibrillation Diabetes mellitus type 2 Hyperlipidemia -TPA was suggested by the tele-neurologist. However, patient refused. Follow-up MRI, carotid Doppler and echocardiogram. -PT/OT/ATTRACTIONS ASSOCIATE -Secondary stroke prophylaxis -Resume chronic home medications -Glycemic control -Life style modifications -Check thyroid function studies -VTE prophylaxis -Monitor renal function, avoid nephrotoxic agents Once patient is weaned off cardene, and has acceptable blood pressure control( allow for permissive hypertension), can transfer to telemtry. Thank you for consult. Will follow
[2019-01-22] MEDS ORDERED: PEPCID IV ONE (09:45)
[2019-01-22] MEDS ORDERED: LOVENOX SUB-Q ONE (09:45)
[2019-01-22] MEDS: PLAVIX PO SCH (10:00)
[2019-01-22] MEDS: PEPCID IV SCH ×2 (10:30→22:12)
[2019-01-22] MEDS: LOVENOX SUB-Q SCH (11:16)
--- NOTE | 2019-01-22 12:50 | Progress Note ---
Assessment and Plan Assessment and plan: Acute CVA. TPA was suggested by the tele-neurologist. However, patient refused. Follow-up MRI, carotid Doppler and echocardiogram. Neurology consultation pending. PT/OT. Patient with history of CVA in 2006. CT scan of the brain that showed chronic infarct but no acute infarction or mass effect. Accelerated hypertension. Wean Cardene drip and resume home medications. Atrial fibrillation. Rate controlled. Diabetes mellitus type 2. Continue Accu-Cheks and sliding scale insulin. Poorly controlled. Hemoglobin A1c 10.2 Hyperlipidemia. Continue statin. History Interval history: No new issues since admission. Hospitalist Physical - Constitutional Vitals: Temp Pulse Resp BP Pulse Ox 98.1 F 77 18 117/54 96 01/22/19 12:17 01/22/19 12:17 01/22/19 12:17 01/22/19 12:17 01/22/19 12:17 General appearance: Present: no acute distress - EENT Eyes: Present: PERRL, EOM intact ENT: hearing intact, clear oral mucosa, dentition normal - Neck Neck: Present: supple, normal ROM - Respiratory Respiratory effort: normal Respiratory: bilateral: CTA - Cardiovascular Rhythm: regular Heart Sounds: Present: S1 & S2. Absent: gallop, rub - Extremities Extremities: no ischemia, No edema, Full ROM - Abdominal General gastrointestinal: soft, non-tender, non-distended, normal bowel sounds - Integumentary Integumentary: Present: clear, warm, dry - Neurologic Neurologic: CNII-XII intact, moves all extremities Results - Labs CBC & Chem 7: 01/21/19 22:04 01/21/19 22:04 Labs: Laboratory Last Values WBC 6.8 K/mm3 (4.5-11.0) 01/21/19 22:04 RBC 3.81 M/mm3 (3.65-5.03) 01/21/19 22:04 Hgb 12.1 gm/dl (10.1-14.3) 01/21/19 22:04 Hct 35.3 % (30.3-42.9) 01/21/19 22:04 MCV 93 fl (79-97) 01/21/19 22:04 MCH 32 pg (28-32) 01/21/19 22:04 MCHC 34 % (30-34) 01/21/19 22:04 RDW 13.4 % (13.2-15.2) 01/21/19 22:04 Plt Count 115 K/mm3 (140-440) L 01/21/19 22:04 Lymph % (Auto) 26.6 % (13.4-35.0) 01/21/19 22:04 [place] % (Auto) 8.2 % (0.0-7.3) H 01/21/19 22:04 Eos % (Auto) 1.2 % (0.0-4.3) 01/21/19 22:04 Baso % (Auto) 0.7 % (0.0-1.8) 01/21/19 22:04 Lymph # 1.8 K/mm3 (1.2-5.4) 01/21/19 22:04 [place] # 0.6 K/mm3 (0.0-0.8) 01/21/19 22:04 Eos # 0.1 K/mm3 (0.0-0.4) 01/21/19 22:04 Baso # 0.0 K/mm3 (0.0-0.1) 01/21/19 22:04 Seg Neutrophils % 63.3 % (40.0-70.0) 01/21/19 22:04 Seg Neutrophils # 4.3 K/mm3 (1.8-7.7) 01/21/19 22:04 PT 12.5 Sec. (12.2-14.9) 01/21/19 22:04 INR 0.88 (0.87-1.13) 01/21/19 22:04 APTT 22.9 Sec. (24.2-36.6) L 01/21/19 22:04 Thrombin Time 17.9 Sec. (15.1-19.6) 01/21/19 22:04 Sodium 137 mmol/L (137-145) 01/21/19 22:04 Potassium 3.9 mmol/L (3.6-5.0) 01/21/19 22:04 Chloride 99.4 mmol/L (98-107) 01/21/19 22:04 Carbon Dioxide 24 mmol/L (22-30) 01/21/19 22:04 Anion Gap 18 mmol/L 01/21/19 22:04 BUN 23 mg/dL (7-17) H 01/21/19 22:04 Creatinine 1.1 mg/dL (0.7-1.2) 01/21/19 22:04 Estimated GFR 50 ml/min 01/21/19 22:04 BUN/Creatinine Ratio 21 % 01/21/19 22:04 Glucose 353 mg/dL (65-100) H 01/21/19 22:04 POC Glucose 230 (70-105) H 01/22/19 07:49 Hemoglobin A1c 10.2 % (4-6) H 01/22/19 05:03 Calcium 9.1 mg/dL (8.4-10.2) 01/21/19 22:04 Total Creatine Kinase 33 units/L (30-135) 01/21/19 22:04 CK-MB (CK-2) 1.7 ng/mL (0.0-4.0) 01/21/19 22:04 CK-MB (CK-2) Rel Index 5.1 (0-4) H 01/21/19 22:04 Troponin T < 0.010 ng/mL (0.00-0.029) 01/21/19 22:04 Triglycerides 120 mg/dL (2-149) 01/22/19 05:03 Cholesterol 213 mg/dL (50-199) H 01/22/19 05:03 LDL Cholesterol Direct 144 mg/dL (50-130) H 01/22/19 05:03 HDL Cholesterol 69 mg/dL (40-59) H 01/22/19 05:03 Cholesterol/HDL Ratio 3.08 % 01/22/19 05:03 Urine Color Straw (Yellow) 01/21/19 23:25 Urine Turbidity Clear (Clear) 01/21/19 23:25 Urine pH 7.0 (5.0-7.0) 01/21/19 23:25 Ur Specific [place] 1.007 (1.003-1.030) 01/21/19 23:25 Urine Protein 30 mg/dl mg/dL (Negative) 01/21/19 23:25 Urine Glucose (UA) >=500 mg/dL (Negative) 01/21/19 23:25 Urine Ketones Tr mg/dL (Negative) 01/21/19 23:25 Urine Blood Neg (Negative) 01/21/19 23:25 Urine Nitrite Neg (Negative) 01/21/19 23:25 Urine Bilirubin Neg (Negative) 01/21/19 23:25 Urine Urobilinogen < 2.0 mg/dL (<2.0) 01/21/19 23:25 Ur Leukocyte Esterase Neg (Negative) 01/21/19 23:25 Urine WBC (Auto) 1.0 /HPF (0.0-6.0) 01/21/19 23:25 Urine RBC (Auto) 1.0 /HPF (0.0-6.0) 01/21/19 23:25 U Epithel Cells (Auto) 5.0 /HPF (0-13.0) 01/21/19 23:25 Urine Bacteria (Auto) 1+ /HPF (Negative) 01/21/19 23:25 Urine Opiates Screen Presumptive negative 01/21/19 23:25 Urine Methadone Screen Presumptive negative 01/21/19 23:25 Ur Barbiturates Screen Presumptive negative 01/21/19 23:25 Ur Phencyclidine Scrn Presumptive negative 01/21/19 23:25 Ur Amphetamines Screen Presumptive negative 01/21/19 23:25 U Benzodiazepines Scrn Presumptive negative 01/21/19 23:25 Urine Cocaine Screen Presumptive negative 01/21/19 23:25 U Marijuana (THC) Screen Presumptive negative 01/21/19 23:25 Drugs of Abuse Note Disclamer 01/21/19 23:25 Plasma/Serum Alcohol < 0.01 % (0-0.07) 01/21/19 22:04 Active Medications - Current Medications Current Medications: Generic Name Dose Route Start Last Admin Trade Name Freq PRN Reason Stop Dose Admin Acetaminophen 650 mg 01/21/19 23:51 Tylenol PO Q4H PRN Pain, Mild (1-3) Atorvastatin Calcium 40 mg 01/22/19 22:00 Lipitor PO QHS [facility] Bisacodyl 10 mg 01/21/19 23:51 Dulcolax [place] QDAY PRN Constipation Clopidogrel Bisulfate 75 mg 01/22/19 10:00 01/22/19 10:00 Plavix PO 75 mg QDAY [facility] Administration Dextrose 50 ml 01/21/19 23:51 D50w (25gm) Syringe IV PRN PRN Hypoglycemia Enoxaparin Sodium 40 mg 01/22/19 10:00 01/22/19 11:16 Lovenox SUB-Q Not Given QDAY [facility] Famotidine 20 mg 01/22/19 10:00 01/22/19 10:30 Pepcid IV 20 mg BID [facility] Administration Nicardipine HCl 50 mg/ Sodium 250 mls @ 25 mls/hr 01/22/19 03:00 01/22/19 05:00 Chloride IV 2.5 mg/hr TITR [facility] 12.5 mls/hr Titration Protocol 5 MG/HR Insulin Glargine 10 units 01/22/19 22:00 Lantus SUB-Q QHS [facility] Insulin Human Lispro 0 unit 01/22/19 07:30 01/22/19 07:45 Humalog SUB-Q 3 unit ACHS [facility] Administration Protocol Magnesium Hydroxide 30 ml 01/21/19 23:51 Milk Of Magnesia PO Q4H PRN Constipation Metoclopramide HCl 10 mg 01/21/19 23:51 Reglan PO Q6H PRN Nausea And Vomiting Ondansetron HCl 4 mg 01/21/19 23:51 Zofran IV Q8H PRN Nausea And Vomiting Promethazine HCl 25 mg 01/21/19 23:51 Phenergan [place] Q6H PRN Nausea And Vomiting Sodium Chloride 10 ml 01/21/19 23:51 Sodium Chloride Flush Syringe 10 Ml IV PRN PRN LINE FLUSH
--- NOTE | 2019-01-22 13:36 | Vascular Lab Report ---
PROCEDURE: VL CAROTID DUPLEX BILAT TECHNIQUE: Carotid duplex Doppler ultrasound. Grayscale, color flow and spectral waveform imaging pe rformed. HISTORY: stroke symptoms right side COMPARISON: None FINDINGS: There is prominent atherosclerotic plaque on the right. There is elevated flow velocity in the right proximal ICA measured at 269 cm/s. There is an ICA/CCA ratio of 2.4. Findings indicate proximal ICA s tenosis of 50-79%. Additionally there is elevated flow velocity in the ECA measured at 235 cm/s also suggestive of ECA stenosis of 50-79%. Right vertebral artery flow is antegrade On the left there is a stent in the ICA. There is some plaque formation within the stent and seen at the carotid bifurcation. There is, however, no significant elevation in flow velocity. The left ICA/C CA velocity ratio is 1.3. Findings indicate stenoses of less than 50%. Left vertebral artery flow is antegrade. IMPRESSION: On the right there is prominent atherosclerotic change. Findings suggest proximal ICA stenosis of 50- 79%. On the left there are atherosclerotic changes with an ICA stent. There is no evidence for stenosis of hemodynamic significance (Less than 50%). This document is electronically signed by Amber Alvares MD., January 22 2019 01:33:32 PM ET
[2019-01-22] MEDS ORDERED: XANAX PO NR (14:00)
[2019-01-22] MEDS ORDERED: HumaLOG SUB-Q ONE ×2 (14:02→17:49)
--- NOTE | 2019-01-22 15:33 | Consultation ---
History of Present Illness Consult date: 01/22/19 Requesting physician: ROSI CARRION Reason for Consult: stroke Chief complaint: weakness right side History of present illness: This 63-year-old right-handed white female noticed weakness in her right side including her face around 7 PM yesterday and was brought to the emergency room where drooping of the right side of her face was noted. Since her prior stroke she sometimes has had jerking of the right arm. She had headache at the top of her head with some nausea but no photophobia. Headache is a new symptom for her but states she gets it when her blood pressure is high. She states her blood pressure has been high since Xanax was stopped suddenly 2 months ago by her primary care physician. Blood pressure at home was as high as 229 systolic but doesn't know what the diastolic was. She has felt lightheaded with this episode and some spinning dizziness. She still is lightheaded today though better, with some milder headache. Her right arm and leg are better with a little improvement in numbness and tingling which had been worse than her baseline. She had a prior stroke in 2006 affecting her right side for which she had therapy for 2 months. She had a mini stroke last year affecting her right side and had apparently an MRI in [place], [place] but doesn't know the result. She was placed on Plavix and aspirin in 2006 at the time of the stroke and later aspirin was stopped. Crestor was started apparently at the time of that stroke. She takes lisinopril 40 mg in the morning and Coreg 25 mg twice a day. Past medical history: Medical: Hypertension, anxiety, asthma, blockage of both leg arteries but no procedure needed Surgeries: Some teeth extractions, tonsils as a child, coronary artery bypass graft for 2 vessels in April 2007 and left carotid stent March 2007, had a walker but lost when moving her residents. No falls lately. 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 Quit smoking 3 weeks ago, was smoking one half pack per day. No alcohol for 20 years. Never illicit drugs. Family history: Stroke fatal in her brother, fatal [place] in her father, hypertension in 2 maternal aunts and paternal grandmother, no brain aneurysms. No epilepsy. Diabetes in 2 maternal first cousins and in her brother. Review of systems: Occasional headaches associated with hypertension or sinus problem. Lightheaded or spinning at times. Problems with memory for short-term and remote since 2007. No snoring and no positive in sleep, talks in her sleep at times, no napping or dozing but poor sleep since Xanax was stopped. Numbness and tingling in right arm and leg since her 2007 stroke. General Appearance: well developed well nourished (per BMI) mid 60s white female in NAD. HEENT: atraumatic, normocephalic; no bruits, 3+ right STA but can't feel left STA but no soreness or induration or enlargement on the right, sclerae nonicteric. Oropharynx pink and moist. Neck: supple, no bruits. Heart: no murmur or extra sounds. Extremities: no clubbing, cyanosis or edema. Cannot feel posterior tibial or dorsalis pedis pulses on either side. Neurologic Exam: Mental Status: Awake, alert, oriented X 3, speech is clear, names pen but not tip of pen and glasses but not the lenses, though she abstracts well. Names President but not Driller Machine, serial 7's intact, no right-left confusion, gets 3 of 3 objects at 3 minutes, cannot spell WORLD forwards correctly, spells CATCH however forward and backwards correctly. Cranial Nerves: whelan full, no papilledema, SVPs present, PERRLA, EOMs full without nystagmus or diplopia, facial sensation decreased to pinprick and light touch on the right, no facial weakness, Barron is midline, palate rises symmetrically to phonation OR gags are positive, shoulder shrug is 5 X 2, tongue protrudes midline. Cerebellar: finger to nose dysmetric right, heel to obrien is intact bilaterally. Sensory: Decreased to light touch and pinprick on the right, decreased vibrations right hand but increased right foot. Double simultaneous stimulation is intact. Motor Exam Upper Extremities: Moderate right drift, Akiko slow bilaterally but especially on the right financial director are 5 right and 2+ left, tone is normal. No atrophy or fasciculations are noted visually. Motor Exam Lower Extremities: Moderate right leg lag; iliopsoas are 3+-4- right with local pain and 5 left, quadriceps are 4 right and 5- left with some local pain, anterior tibials are 4+ right and 5 left, and gastrocnemius are 4+ right and 5 left. Akiko slow bilaterally tone is normal. No atrophy or fasciculations are noted visually. Reflexes: Palmomental is slightly positive bilaterally, snout and jaw jerk are negative. Triceps, biceps and brachioradialis are 1+ bilaterally. Too's is negative bilaterally. Knee jerks are 1+ and ankle jerks are 1 right and 0 left remaining 0 even with reinforcement and without clonus. Toes are downgoing bilaterally to Babinski testing. Past History Past Medical History: CAD, diabetes, hypertension, hyperlipidemia, other (history of kidney disease) Past Surgical History: CABG Social history: no significant social history, lives with family Family history: no significant family history, CAD (father), hypertension, stroke (younger brother), other (Sister with kidney disease) Medications and Allergies Allergies Allergy/AdvReac Type Severity Reaction Status Date / Time iodine Allergy Hives Verified 01/21/19 22:50 Penicillins Allergy Anaphylaxis Verified 01/21/19 21:27 Sulfa (Sulfonamide Allergy Hives Verified 01/21/19 21:27 Antibiotics) Home Medications Medication Instructions Recorded Confirmed Last Taken Type Clopidogrel Bisulfate [Clopidogrel] 75 mg PO QDAY 01/21/19 01/22/19 01/21/19 History 75mg ALPRAZolam [Xanax TAB] 1 mg PO TID PRN MDD 4mg 01/22/19 01/22/19 Unknown History Carvedilol 25 mg PO BID 01/22/19 01/22/19 01/21/19 History 25mg Co Q-10 100 mg Softgel 100 mg PO QDAY 01/22/19 01/22/19 01/21/19 History Linagliptin [Tradjenta] 5 mg PO QDAY 01/22/19 01/22/19 01/21/19 History 5mg Lisinopril [Zestril TAB] 40 mg PO QDAY 01/22/19 01/22/19 01/21/19 History 40mg Rosuvastatin Calcium 20 mg PO QDAY 01/22/19 01/22/19 01/21/19 History 20mg Vitamin D3 2,000 UNIT CAP 50 mcg PO QDAY 01/22/19 01/22/19 01/21/19 History 50MCG buPROPion SR [Wellbutrin SR] 150 mg PO BID 01/22/19 01/22/19 01/21/19 History 150mg Active Meds: Active Medications Acetaminophen (Tylenol) 650 mg PO Q4H PRN PRN Reason: Pain, Mild (1-3) Alprazolam (Xanax) 2 mg PO CONTRACTING ANALYST NR Stop: 01/22/19 23:59 Atorvastatin Calcium (Lipitor) 40 mg PO QHS [facility] Atorvastatin Calcium (Lipitor) 40 mg PO QHS [facility] Bisacodyl (Dulcolax) 10 mg [place] QDAY PRN PRN Reason: Constipation Bupropion HCl (Wellbutrin Sr) 150 mg PO BID [facility] Carvedilol (Coreg) 25 mg PO BID [facility] Clopidogrel Bisulfate (Plavix) 75 mg PO QDAY [facility] Last Admin: 01/22/19 10:00 Dose: 75 mg Documented by: Clopidogrel Bisulfate (Plavix) 75 mg PO QDAY [facility] Dextrose (D50w (25gm) Syringe) 50 ml IV PRN PRN PRN Reason: Hypoglycemia Enoxaparin Sodium (Lovenox) 40 mg SUB-Q QDAY [facility] Last Admin: 01/22/19 11:16 Dose: Not Given Documented by: Famotidine (Pepcid) 20 mg IV BID [facility] Last Admin: 01/22/19 10:30 Dose: 20 mg Documented by: Nicardipine HCl 50 mg/ Sodium (Chloride) 250 mls @ 25 mls/hr IV TITR [facility]; Protocol Last Titration: 01/22/19 05:00 Dose: 2.5 mg/hr, 12.5 mls/hr Documented by: Insulin Glargine (Lantus) 10 units SUB-Q QHS [facility] Insulin Human Lispro (Humalog) 0 unit SUB-Q ACHS [facility]; Protocol Last Admin: 01/22/19 14:01 Dose: 8 unit Documented by: Linagliptin (Tradjenta) 5 mg PO QDAY [facility] Lisinopril (Zestril) 40 mg PO QDAY [facility] Magnesium Hydroxide (Milk Of Magnesia) 30 ml PO Q4H PRN PRN Reason: Constipation Metoclopramide HCl (Reglan) 10 mg PO Q6H PRN PRN Reason: Nausea And Vomiting Miscellaneous Medication (Co Q-10 100 Mg Softgel) 100 mg PO QDAY [facility] Miscellaneous Medication (Vitamin D3 2,000 Unit Cap) 50 mcg PO QDAY [facility] Ondansetron HCl (Zofran) 4 mg IV Q8H PRN PRN Reason: Nausea And Vomiting Promethazine HCl (Phenergan) 25 mg [place] Q6H PRN PRN Reason: Nausea And Vomiting Sodium Chloride (Sodium Chloride Flush Syringe 10 Ml) 10 ml IV PRN PRN PRN Reason: LINE FLUSH Physical Examination - Vital Signs Vital Signs: Vital Signs Temp Pulse Resp BP Pulse Ox 98.1 F 77 18 162/72 99 01/21/19 21:22 01/21/19 21:22 01/21/19 21:22 01/21/19 21:22 01/21/19 21:22 Results - Laboratory Findings CBC and BMP: 01/21/19 22:04 01/21/19 22:04 Abnormal Lab Findings: Abnormal Labs 01/21/19 01/21/19 01/21/19 21:55 22:04 22:04 Plt Count 115 L Hand % (Auto) 8.2 H APTT BUN 23 H Glucose 353 H POC Glucose 316 H Hemoglobin A1c CK-MB (CK-2) Rel Index Cholesterol LDL Cholesterol Direct HDL Cholesterol 01/21/19 01/21/19 01/22/19 22:04 22:04 05:03 Plt Count Hand % (Auto) APTT 22.9 L BUN Glucose POC Glucose Hemoglobin A1c 10.2 H CK-MB (CK-2) Rel Index 5.1 H Cholesterol LDL Cholesterol Direct HDL Cholesterol 01/22/19 01/22/19 01/22/19 05:03 07:49 13:50 Plt Count Hand % (Auto) APTT BUN Glucose POC Glucose 230 H 479 H Hemoglobin A1c CK-MB (CK-2) Rel Index Cholesterol 213 H LDL Cholesterol Direct 144 H HDL Cholesterol 69 H Assessment and Plan Impression: 1. Embolic acute stroke 2. Old embolic strokes 3. Malignant hypertension Plan: 1. Off Cardene drip, BP was too low acutely at 152/61. 2. MRI since off Cardene drip. 3. Ordered Xanax premed for MRI. May need it as maintenance dose while is hospital. Suggest trial of buspirone for anxiety as outpatient, does not want to try an SSRI. 4. Should have Vascular surgery consult at least as outpatient unless MRI shows new strokes in right hemisphere. Added MRA neck with dye since allergic to iodine. 45 minutes critical care time spent. Thank you for an interesting consultation on this unfortunate mid 60s lady. Sign off, call for any unusual MRI findings.
--- NOTE | 2019-01-22 18:37 | Magnetic Resonance Report ---
PROCEDURE: MR BRAIN WO CON TECHNIQUE: MRI examination of the brain without IV contrast HISTORY: stroke COMPARISONS: Head CT 01/21/2019 FINDINGS: Stable chronic infarcts in superior left parieto-occipital watershed region and posterior left occipi ratna lobe. The included air filled sinuses contain no acute fluid level. Foci of T2 hyperintensity in the cerebral white matter, while nonspecific, are present and usually at tributed to chronic ischemic gliosis. It can occur secondary to the normal aging process, hypertensio n, vasculitis, migraine related changes, or arterial sclerotic vascular disease. The differential inc ludes any cause of gliosis as well as demyelination in the appropriate clinical setting. There is ventricular and sulcal prominence compatible with global symmetric cerebrocortical atrophy. The brain is without mass, mass effect, hemorrhage, or acute infarct. There are no areas of brain restricted diffusion to suggest an acute ischemic infarct. There is no midline shift or brain edema. IMPRESSION: No acute CVA or brain mass Stable chronic infarcts in superior left parieto-occipital watershed region and posterior left occipi ratna lobe. This document is electronically signed by Domenico Pendleton MD., January 22 2019 06:35:16 PM ET
--- NOTE | 2019-01-22 18:46 | Magnetic Resonance Report ---
PROCEDURE: MR MRA HEAD WO CON TECHNIQUE: MRA examination of the brain without IV contrast HISTORY: stroke COMPARISONS: Head CT 01/21/2019 and brain MRI 01/22/2019 FINDINGS: Note: Assessment of carotid artery stenosis is based on measurement of the distal internal carotid a rtery diameter as the denominator for stenosis calculations and the [place] Symptomatic Caroti d Endarterectomy Trial (NASCET) stenosis criteria. Intracranial vessels: Carotid siphon: Normal. Anterior cerebral: Normal. Developmental variation with both anterior cerebral arteries arising from the right side. Middle cerebral: Normal. Posterior cerebral: Normal. Developmental variation with bilateral persistent circulation. Vertebral: Normal. Basilar: Normal. Occlusion: None. Vascular malformations: None. Aneurysm: None. IMPRESSION: No MRA evidence of brain vascular pathology This document is electronically signed by Domenico Pendleton MD., January 22 2019 06:44:01 PM ET
--- NOTE | 2019-01-22 18:55 | Magnetic Resonance Report ---
PROCEDURE: MR MRA NECK W CON TECHNIQUE: Multiplanar multisequence carotids/neck arterial vascular MRA imaging 3-D image postprocessing. HISTORY: stroke COMPARISONS: Brain MRI 01/22/2019 FINDINGS: Note: Assessment of carotid artery stenosis is based on measurement of the distal internal carotid a rtery diameter as the denominator for stenosis calculations and the [place] Symptomatic Caroti d Endarterectomy Trial (NASCET) stenosis criteria. Common Carotid arteries: Normal. Carotid bifurcation: Approximately 25% diameter stenosis on the right. Occlusion on the left. Internal carotid arteries: Approximately 75% diameter stenosis in the proximal right ICA. Segmental o cclusion of proximal left ICA extending over a length of approximately 2.2 cm. Normal caliber distal reconstitution of left ICA. Vertebral arteries: Normal. Basilar artery: Normal. Vascular malformations: None. Aneurysm: None. Vascular ulceration: None. Filling defect to suggest dissection: None IMPRESSION: Findings suggest segmental occlusion of the left carotid bifurcation and proximal left ICA with dista l reconstitution and/or retrograde filling Approximately 75% diameter stenosis proximal right ICA Approximately 25% diameter stenosis right carotid bifurcation This document is electronically signed by Domenico Pendleton MD., January 22 2019 06:53:36 PM ET
[2019-01-22] MEDS: COREG PO SCH (22:11)
[2019-01-22] MEDS: LANTUS SUB-Q SCH (22:12)
[2019-01-22] MEDS: WELLBUTRIN SR PO SCH (22:12)
[2019-01-23] MEDS: APRESOLINE IV PRN (05:00)
[2019-01-23] MEDS ORDERED: PLAVIX PO SCH (10:00)
[2019-01-23] MEDS ORDERED: VITAMIN D3 PO SCH (10:00)
[2019-01-23] MEDS ORDERED: NON-FORMULARY (Rosuvastatin Calcium [Rosuvastatin Calcium] 20 MG) PO SCH (10:00)
[2019-01-23] MEDS ORDERED: CO Q10 100 MG PO SCH (10:00)
[2019-01-23] MEDS: HumaLOG SUB-Q SCH ×4 (10:17→22:31)
[2019-01-23] MEDS: PLAVIX PO SCH (10:37)
[2019-01-23] MEDS: ZESTRIL PO SCH (10:37)
[2019-01-23] MEDS: WELLBUTRIN SR PO SCH ×2 (10:38→22:30)
[2019-01-23] MEDS: COREG PO SCH (10:38)
[2019-01-23] MEDS: TRADJENTA PO SCH (10:39)
[2019-01-23] MEDS: PEPCID IV SCH ×2 (10:39→22:30)
[2019-01-23] MEDS: LOVENOX SUB-Q SCH (10:40)
[2019-01-23] MEDS: NORMODYNE PO SCH ×2 (11:10→22:30)
--- NOTE | 2019-01-23 11:28 | Progress Note ---
Assessment and Plan Assessment and plan: Acute CVA. TPA was suggested by the tele-neurologist. However, patient refused. MRI reveals no acute CVA or brain mass. Patient with stable chronic infarcts in the superior left parietal occipital watershed region and posterior left occipital lobe. MRA shows findings of occlusion of the left carotid bifurcation and proximal left ICA with distal reconstitution and or retrograde filling. 75% diameter stenosis proximal right ICA. Carotid Doppler reveals right ICA stenosis of 50-79%. Left carotid artery with RCA stent with no evidence of stenosis. And echocardiogram. Neurology consultation pending. PT/OT. Patient with history of CVA in 2006. CT scan of the brain that showed chronic infarct but no acute infarction or mass effect. Right ICA stenosis. Vascular surgery consultation. Accelerated hypertension. We will allow for permissive hypertension with systolic blood pressures in the 160s. However, patient with severely elevated BP with systolic in the 180 range. Add labetalol twice a day Atrial fibrillation. Rate controlled. Diabetes mellitus type 2. Continue Accu-Cheks and sliding scale insulin. Poorly controlled. Hemoglobin A1c 10.2. Increase Lantus to 20 units at bedtime Hyperlipidemia. Continue statin. Anxiety disorder. Resume Xanax. Disposition. Await PT evaluation. History Interval history: Patient complained that she did not receive her home medication of Xanax. Hospitalist Physical - Constitutional Vitals: Temp Pulse Resp BP Pulse Ox 98.6 F 78 18 183/64 99 01/23/19 09:32 01/23/19 11:10 01/23/19 09:28 01/23/19 11:10 01/23/19 09:28 General appearance: Present: no acute distress - EENT Eyes: Present: PERRL, EOM intact ENT: hearing intact, clear oral mucosa, dentition normal - Neck Neck: Present: supple, normal ROM - Respiratory Respiratory effort: normal Respiratory: bilateral: CTA - Cardiovascular Rhythm: regular Heart Sounds: Present: S1 & S2. Absent: gallop, rub - Extremities Extremities: no ischemia, No edema, Full ROM - Abdominal General gastrointestinal: soft, non-tender, non-distended, normal bowel sounds - Integumentary Integumentary: Present: clear, warm, dry - Neurologic Neurologic: CNII-XII intact, moves all extremities Results - Labs CBC & Chem 7: 01/21/19 22:04 01/21/19 22:04 Labs: Laboratory Last Values WBC 6.8 K/mm3 (4.5-11.0) 01/21/19 22:04 RBC 3.81 M/mm3 (3.65-5.03) 01/21/19 22:04 Hgb 12.1 gm/dl (10.1-14.3) 01/21/19 22:04 Hct 35.3 % (30.3-42.9) 01/21/19 22:04 MCV 93 fl (79-97) 01/21/19 22:04 MCH 32 pg (28-32) 01/21/19 22:04 MCHC 34 % (30-34) 01/21/19 22:04 RDW 13.4 % (13.2-15.2) 01/21/19 22:04 Plt Count 115 K/mm3 (140-440) L 01/21/19 22:04 Lymph % (Auto) 26.6 % (13.4-35.0) 01/21/19 22:04 [place] % (Auto) 8.2 % (0.0-7.3) H 01/21/19 22:04 Eos % (Auto) 1.2 % (0.0-4.3) 01/21/19 22:04 Baso % (Auto) 0.7 % (0.0-1.8) 01/21/19 22:04 Lymph # 1.8 K/mm3 (1.2-5.4) 01/21/19 22:04 [place] # 0.6 K/mm3 (0.0-0.8) 01/21/19 22:04 Eos # 0.1 K/mm3 (0.0-0.4) 01/21/19 22:04 Baso # 0.0 K/mm3 (0.0-0.1) 01/21/19 22:04 Seg Neutrophils % 63.3 % (40.0-70.0) 01/21/19 22:04 Seg Neutrophils # 4.3 K/mm3 (1.8-7.7) 01/21/19 22:04 PT 12.5 Sec. (12.2-14.9) 01/21/19 22:04 INR 0.88 (0.87-1.13) 01/21/19 22:04 APTT 22.9 Sec. (24.2-36.6) L 01/21/19 22:04 Thrombin Time 17.9 Sec. (15.1-19.6) 01/21/19 22:04 Sodium 137 mmol/L (137-145) 01/21/19 22:04 Potassium 3.9 mmol/L (3.6-5.0) 01/21/19 22:04 Chloride 99.4 mmol/L (98-107) 01/21/19 22:04 Carbon Dioxide 24 mmol/L (22-30) 01/21/19 22:04 Anion Gap 18 mmol/L 01/21/19 22:04 BUN 23 mg/dL (7-17) H 01/21/19 22:04 Creatinine 1.1 mg/dL (0.7-1.2) 01/21/19 22:04 Estimated GFR 50 ml/min 01/21/19 22:04 BUN/Creatinine Ratio 21 % 01/21/19 22:04 Glucose 353 mg/dL (65-100) H 01/21/19 22:04 POC Glucose 131 (70-105) H 01/23/19 09:36 Hemoglobin A1c 10.2 % (4-6) H 01/22/19 05:03 Calcium 9.1 mg/dL (8.4-10.2) 01/21/19 22:04 Total Creatine Kinase 33 units/L (30-135) 01/21/19 22:04 CK-MB (CK-2) 1.7 ng/mL (0.0-4.0) 01/21/19 22:04 CK-MB (CK-2) Rel Index 5.1 (0-4) H 01/21/19 22:04 Troponin T < 0.010 ng/mL (0.00-0.029) 01/21/19 22:04 Triglycerides 120 mg/dL (2-149) 01/22/19 05:03 Cholesterol 213 mg/dL (50-199) H 01/22/19 05:03 LDL Cholesterol Direct 144 mg/dL (50-130) H 01/22/19 05:03 HDL Cholesterol 69 mg/dL (40-59) H 01/22/19 05:03 Cholesterol/HDL Ratio 3.08 % 01/22/19 05:03 Urine Color Straw (Yellow) 01/21/19 23:25 Urine Turbidity Clear (Clear) 01/21/19 23:25 Urine pH 7.0 (5.0-7.0) 01/21/19 23:25 Ur Specific [place] 1.007 (1.003-1.030) 01/21/19 23:25 Urine Protein 30 mg/dl mg/dL (Negative) 01/21/19 23:25 Urine Glucose (UA) >=500 mg/dL (Negative) 01/21/19 23:25 Urine Ketones Tr mg/dL (Negative) 01/21/19 23:25 Urine Blood Neg (Negative) 01/21/19 23:25 Urine Nitrite Neg (Negative) 01/21/19 23:25 Urine Bilirubin Neg (Negative) 01/21/19 23:25 Urine Urobilinogen < 2.0 mg/dL (<2.0) 01/21/19 23:25 Ur Leukocyte Esterase Neg (Negative) 01/21/19 23:25 Urine WBC (Auto) 1.0 /HPF (0.0-6.0) 01/21/19 23:25 Urine RBC (Auto) 1.0 /HPF (0.0-6.0) 01/21/19 23:25 U Epithel Cells (Auto) 5.0 /HPF (0-13.0) 01/21/19 23:25 Urine Bacteria (Auto) 1+ /HPF (Negative) 01/21/19 23:25 Urine Opiates Screen Presumptive negative 01/21/19 23:25 Urine Methadone Screen Presumptive negative 01/21/19 23:25 Ur Barbiturates Screen Presumptive negative 01/21/19 23:25 Ur Phencyclidine Scrn Presumptive negative 01/21/19 23:25 Ur Amphetamines Screen Presumptive negative 01/21/19 23:25 U Benzodiazepines Scrn Presumptive negative 01/21/19 23:25 Urine Cocaine Screen Presumptive negative 01/21/19 23:25 U Marijuana (THC) Screen Presumptive negative 01/21/19 23:25 Drugs of Abuse Note Disclamer 01/21/19 23:25 Plasma/Serum Alcohol < 0.01 % (0-0.07) 01/21/19 22:04 Active Medications - Current Medications Current Medications: Generic Name Dose Route Start Last Admin Trade Name Freq PRN Reason Stop Dose Admin Acetaminophen 650 mg 01/21/19 23:51 Tylenol PO Q4H PRN Pain, Mild (1-3) Atorvastatin Calcium 40 mg 01/22/19 22:00 01/22/19 22:11 Lipitor PO 40 mg QHS CHRISTINE Administration Bisacodyl 10 mg 01/21/19 23:51 Dulcolax [place] QDAY PRN Constipation Bupropion HCl 150 mg 01/22/19 22:00 01/23/19 10:38 Wellbutrin Sr PO 150 mg BID CHRISTINE Administration Clopidogrel Bisulfate 75 mg 01/22/19 10:00 01/23/19 10:37 Plavix PO 75 mg QDAY CHRISTINE Administration Dextrose 50 ml 01/21/19 23:51 D50w (25gm) Syringe IV PRN PRN Hypoglycemia Enoxaparin Sodium 40 mg 01/22/19 10:00 01/23/19 10:40 Lovenox SUB-Q Not Given QDAY CHRISTINE Famotidine 20 mg 01/22/19 10:00 01/23/19 10:39 Pepcid IV 20 mg BID CHRISTINE Administration Hydralazine HCl 10 mg 01/23/19 04:41 01/23/19 05:00 Apresoline IV 10 mg Q4H PRN Administration FOR JONNIE BP> 160/90 Insulin Glargine 10 units 01/22/19 22:00 01/22/19 22:12 Lantus SUB-Q 10 units QHS CHRISTINE Administration Insulin Human Lispro 0 unit 01/22/19 07:30 01/23/19 10:17 Humalog SUB-Q Not Given [facility] Protocol Labetalol HCl 200 mg 01/23/19 11:00 01/23/19 11:10 Normodyne PO 200 mg BID CHIRSTINE Administration Linagliptin 5 mg 01/23/19 10:00 01/23/19 10:39 Tradjenta PO 5 mg QDAY CHRISTINE Administration Lisinopril 40 mg 01/23/19 10:00 01/23/19 10:37 Zestril PO 40 mg QDAY CHRISTINE Administration Magnesium Hydroxide 30 ml 01/21/19 23:51 Milk Of Magnesia PO Q4H PRN Constipation Metoclopramide HCl 10 mg 01/21/19 23:51 Reglan PO Q6H PRN Nausea And Vomiting Miscellaneous Medication 50 mcg 01/23/19 10:00 Vitamin D3 2,000 Unit Cap PO QDAY CHRISTINE Ondansetron HCl 4 mg 01/21/19 23:51 Zofran IV Q8H PRN Nausea And Vomiting Promethazine HCl 25 mg 01/21/19 23:51 Phenergan CA Q6H PRN Nausea And Vomiting Sodium Chloride 10 ml 01/21/19 23:51 Sodium Chloride Flush Syringe 10 Ml IV PRN PRN LINE FLUSH Nutrition/Malnutrition Assess - Dietary Evaluation Nutrition/Malnutrition Findings: Nutrition Notes Start: 01/23/19 10:32 Freq: Status: Active Protocol: Document 01/23/19 10:32 OL (Rec: 01/23/19 10:34 OL [id number]) Nutrition Notes Need for Assessment generated from: MD Order,Education Initial or Follow up Brief Note Current Diagnosis Coronary Artery Disease,Stroke Current Diet No diet ordered Labs/Tests A1c 10.2 Subjective/Other Information RD consult for diet education. Pt. s/p stroke #1 Nutrition Diagnosis Food and nutrition-related knowledge deficit Etiology lack of exposure to nutrition related information As Evidenced by Signs and Symptoms pt. has never received DM diet education, pt. s/p stroke, A1c 10.2 Nutrition Intervention Teaching Recipient Patient Learning Readiness Good Teaching Methods Discussion,Handout Response to Teaching Verbalize understanding Education Handouts Provided CHO counting for people with DM Stroke MNT Barriers to Learning No Barriers RD phone number provided Yes Patient aware of follow up options Yes Revisit per MD consult or patient Sign Off request:
[2019-01-23] MEDS: XANAX PO PRN ×2 (13:29→22:29)
--- NOTE | 2019-01-23 13:40 | Progress Note ---
Assessment and Plan No complaint of chest pain,shortness of breath or cough. Resting on room air.O2 saturation 100%. Patient following commands - Patient Problems (1) CVA (cerebral vascular accident) Current Visit: Yes Status: Acute Qualifiers: CVA mechanism: unspecified Qualified Code(s): I63.9 - Cerebral infarction, unspecified Plan to address problem: Management as per neurology. Aspiration precautions. 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 Subjective Date of service: 01/23/19 Interval history: No complaint of chest pain,shortness of breath or cough. Resting on room air.O2 saturation 100%. Patient following commands. Objective Vital Signs - 12hr 01/23/19 01/23/19 01/23/19 04:29 05:00 09:28 Temperature 98.0 F Pulse Rate 70 71 78 Respiratory 18 18 Rate Blood Pressure 205/79 205/79 183/64 O2 Sat by Pulse 100 99 Oximetry 01/23/19 01/23/19 01/23/19 09:32 10:37 10:38 Temperature 98.6 F Pulse Rate 78 78 Respiratory Rate Blood Pressure 183/64 183/64 O2 Sat by Pulse Oximetry 01/23/19 01/23/19 01/23/19 11:10 12:43 12:45 Temperature 98.3 F Pulse Rate 78 74 Respiratory 18 Rate Blood Pressure 183/64 183/63 O2 Sat by Pulse 99 Oximetry Constitutional: no acute distress, alert Eyes: non-icteric ENT: oropharynx moist Neck: supple, no lymphadenopathy Ascultation: Bilateral: diminished breath sounds Cardiovascular: regular rate and rhythm Gastrointestinal: normoactive bowel sounds, non-tender, non-distended Integumentary: normal Extremities: no cyanosis Psychiatric: depressed CBC and BMP: 01/21/19 22:04 01/21/19 22:04 ABG, PT/INR, D-dimer: PT/INR, D-dimer PT 12.5 Sec. (12.2-14.9) 01/21/19 22:04 INR 0.88 (0.87-1.13) 01/21/19 22:04 Abnormal lab findings: Abnormal Labs 01/21/19 01/21/19 01/21/19 21:55 22:04 22:04 Plt Count 115 L [place] % (Auto) 8.2 H APTT BUN 23 H Glucose 353 H POC Glucose 316 H Hemoglobin A1c CK-MB (CK-2) Rel Index Cholesterol LDL Cholesterol Direct HDL Cholesterol 01/21/19 01/21/19 01/22/19 22:04 22:04 05:03 Plt Count [place] % (Auto) APTT 22.9 L BUN Glucose POC Glucose Hemoglobin A1c 10.2 H CK-MB (CK-2) Rel Index 5.1 H Cholesterol LDL Cholesterol Direct HDL Cholesterol 01/22/19 01/22/19 01/22/19 05:03 07:49 13:50 Plt Count [place] % (Auto) APTT BUN Glucose POC Glucose 230 H 479 H Hemoglobin A1c CK-MB (CK-2) Rel Index Cholesterol 213 H LDL Cholesterol Direct 144 H HDL Cholesterol 69 H 01/22/19 01/22/19 01/23/19 17:32 21:27 09:36 Plt Count [place] % (Auto) APTT BUN Glucose POC Glucose 357 H 304 H 131 H Hemoglobin A1c CK-MB (CK-2) Rel Index Cholesterol LDL Cholesterol Direct HDL Cholesterol 01/23/19 12:00 Plt Count [place] % (Auto) APTT BUN Glucose POC Glucose 310 H Hemoglobin A1c CK-MB (CK-2) Rel Index Cholesterol LDL Cholesterol Direct HDL Cholesterol
[2019-01-23] MEDS: LANTUS SUB-Q SCH (22:30)
--- NOTE | 2019-01-24 09:28 | Progress Note ---
Assessment and Plan Assessment and plan: Acute CVA. TPA was suggested by the tele-neurologist. However, patient refused. MRI reveals no acute CVA or brain mass. Patient with stable chronic infarcts in the superior left parietal occipital watershed region and posterior left occipital lobe. MRA shows findings of occlusion of the left carotid bifurcation and proximal left ICA with distal reconstitution and or retrograde filling. 75% diameter stenosis proximal right ICA. Carotid Doppler reveals right ICA stenosis of 50-79%. Left carotid artery with RCA stent with no evidence of stenosis. And echocardiogram. Neurology consultation pending. PT/OT. Patient with history of CVA in 2006. CT scan of the brain that showed chronic infarct but no acute infarction or mass effect. Right ICA stenosis. Vascular surgery consultation. Accelerated hypertension. Cont. antihypertensives. Atrial fibrillation. Rate controlled. Diabetes mellitus type 2. Continue Accu-Cheks and sliding scale insulin. Poorly controlled. Hemoglobin A1c 10.2. Cont. Lantus to 20 units at bedtime Hyperlipidemia. Continue statin. Anxiety disorder. Resume Xanax. Disposition. Await PT evaluation. History Interval history: Patient complained that she did not receive her home medication of Xanax. Hospitalist Physical - Constitutional Vitals: Temp Pulse Resp BP Pulse Ox 98.3 F 80 18 145/77 99 01/24/19 08:33 01/24/19 08:33 01/24/19 08:33 01/24/19 08:33 01/24/19 08:33 General appearance: Present: no acute distress - EENT Eyes: Present: PERRL, EOM intact ENT: hearing intact, clear oral mucosa, dentition normal - Neck Neck: Present: supple, normal ROM - Respiratory Respiratory effort: normal Respiratory: bilateral: CTA - Cardiovascular Rhythm: regular Heart Sounds: Present: S1 & S2. Absent: gallop, rub - Extremities Extremities: no ischemia, No edema, Full ROM - Abdominal General gastrointestinal: soft, non-tender, non-distended, normal bowel sounds - Integumentary Integumentary: Present: clear, warm, dry - Neurologic Neurologic: CNII-XII intact, moves all extremities Results - Labs CBC & Chem 7: 01/21/19 22:04 01/21/19 22:04 Labs: Laboratory Last Values WBC 6.8 K/mm3 (4.5-11.0) 01/21/19 22:04 RBC 3.81 M/mm3 (3.65-5.03) 01/21/19 22:04 Hgb 12.1 gm/dl (10.1-14.3) 01/21/19 22:04 Hct 35.3 % (30.3-42.9) 01/21/19 22:04 MCV 93 fl (79-97) 01/21/19 22:04 MCH 32 pg (28-32) 01/21/19 22:04 MCHC 34 % (30-34) 01/21/19 22:04 RDW 13.4 % (13.2-15.2) 01/21/19 22:04 Plt Count 115 K/mm3 (140-440) L 01/21/19 22:04 Lymph % (Auto) 26.6 % (13.4-35.0) 01/21/19 22:04 [place] % (Auto) 8.2 % (0.0-7.3) H 01/21/19 22:04 Eos % (Auto) 1.2 % (0.0-4.3) 01/21/19 22:04 Baso % (Auto) 0.7 % (0.0-1.8) 01/21/19 22:04 Lymph # 1.8 K/mm3 (1.2-5.4) 01/21/19 22:04 [place] # 0.6 K/mm3 (0.0-0.8) 01/21/19 22:04 Eos # 0.1 K/mm3 (0.0-0.4) 01/21/19 22:04 Baso # 0.0 K/mm3 (0.0-0.1) 01/21/19 22:04 Seg Neutrophils % 63.3 % (40.0-70.0) 01/21/19 22:04 Seg Neutrophils # 4.3 K/mm3 (1.8-7.7) 01/21/19 22:04 PT 12.5 Sec. (12.2-14.9) 01/21/19 22:04 INR 0.88 (0.87-1.13) 01/21/19 22:04 APTT 22.9 Sec. (24.2-36.6) L 01/21/19 22:04 Thrombin Time 17.9 Sec. (15.1-19.6) 01/21/19 22:04 Sodium 137 mmol/L (137-145) 01/21/19 22:04 Potassium 3.9 mmol/L (3.6-5.0) 01/21/19 22:04 Chloride 99.4 mmol/L (98-107) 01/21/19 22:04 Carbon Dioxide 24 mmol/L (22-30) 01/21/19 22:04 Anion Gap 18 mmol/L 01/21/19 22:04 BUN 23 mg/dL (7-17) H 01/21/19 22:04 Creatinine 1.1 mg/dL (0.7-1.2) 01/21/19 22:04 Estimated GFR 50 ml/min 01/21/19 22:04 BUN/Creatinine Ratio 21 % 01/21/19 22:04 Glucose 353 mg/dL (65-100) H 01/21/19 22:04 POC Glucose 93 (70-105) 01/24/19 08:11 Hemoglobin A1c 10.2 % (4-6) H 01/22/19 05:03 Calcium 9.1 mg/dL (8.4-10.2) 01/21/19 22:04 Total Creatine Kinase 33 units/L (30-135) 01/21/19 22:04 CK-MB (CK-2) 1.7 ng/mL (0.0-4.0) 01/21/19 22:04 CK-MB (CK-2) Rel Index 5.1 (0-4) H 01/21/19 22:04 Troponin T < 0.010 ng/mL (0.00-0.029) 01/21/19 22:04 Triglycerides 120 mg/dL (2-149) 01/22/19 05:03 Cholesterol 213 mg/dL (50-199) H 01/22/19 05:03 LDL Cholesterol Direct 144 mg/dL (50-130) H 01/22/19 05:03 HDL Cholesterol 69 mg/dL (40-59) H 01/22/19 05:03 Cholesterol/HDL Ratio 3.08 % 01/22/19 05:03 Urine Color Straw (Yellow) 01/21/19 23:25 Urine Turbidity Clear (Clear) 01/21/19 23:25 Urine pH 7.0 (5.0-7.0) 01/21/19 23:25 Ur Specific [place] 1.007 (1.003-1.030) 01/21/19 23:25 Urine Protein 30 mg/dl mg/dL (Negative) 01/21/19 23:25 Urine Glucose (UA) >=500 mg/dL (Negative) 01/21/19 23:25 Urine Ketones Tr mg/dL (Negative) 01/21/19 23:25 Urine Blood Neg (Negative) 01/21/19 23:25 Urine Nitrite Neg (Negative) 01/21/19 23:25 Urine Bilirubin Neg (Negative) 01/21/19 23:25 Urine Urobilinogen < 2.0 mg/dL (<2.0) 01/21/19 23:25 Ur Leukocyte Esterase Neg (Negative) 01/21/19 23:25 Urine WBC (Auto) 1.0 /HPF (0.0-6.0) 01/21/19 23:25 Urine RBC (Auto) 1.0 /HPF (0.0-6.0) 01/21/19 23:25 U Epithel Cells (Auto) 5.0 /HPF (0-13.0) 01/21/19 23:25 Urine Bacteria (Auto) 1+ /HPF (Negative) 01/21/19 23:25 Urine Opiates Screen Presumptive negative 01/21/19 23:25 Urine Methadone Screen Presumptive negative 01/21/19 23:25 Ur Barbiturates Screen Presumptive negative 01/21/19 23:25 Ur Phencyclidine Scrn Presumptive negative 01/21/19 23:25 Ur Amphetamines Screen Presumptive negative 01/21/19 23:25 U Benzodiazepines Scrn Presumptive negative 01/21/19 23:25 Urine Cocaine Screen Presumptive negative 01/21/19 23:25 U Marijuana (THC) Screen Presumptive negative 01/21/19 23:25 Drugs of Abuse Note Disclamer 01/21/19 23:25 Plasma/Serum Alcohol < 0.01 % (0-0.07) 01/21/19 22:04 Active Medications - Current Medications Current Medications: Generic Name Dose Route Start Last Admin Trade Name Freq PRN Reason Stop Dose Admin Acetaminophen 650 mg 01/21/19 23:51 01/23/19 11:43 Tylenol PO 650 mg Q4H PRN Administration Pain, Mild (1-3) Alprazolam 0.5 mg 01/23/19 11:33 01/23/19 13:29 Xanax PO 0.5 mg QAM PRN Administration Anxiety Alprazolam 1 mg 01/23/19 21:00 01/23/19 22:29 Xanax PO 1 mg QHS PRN Administration Anxiety Atorvastatin Calcium 40 mg 01/22/19 22:00 01/23/19 22:30 Lipitor PO 40 mg QHS CHRISTINE Administration Bisacodyl 10 mg 01/21/19 23:51 Dulcolax [place] QDAY PRN Constipation Bupropion HCl 150 mg 01/22/19 22:00 01/23/19 22:30 Wellbutrin Sr PO 150 mg BID CHRISTINE Administration Clopidogrel Bisulfate 75 mg 01/22/19 10:00 01/23/19 10:37 Plavix PO 75 mg QDAY CHRISTINE Administration Dextrose 50 ml 01/21/19 23:51 D50w (25gm) Syringe IV PRN PRN Hypoglycemia Enoxaparin Sodium 40 mg 01/22/19 10:00 01/23/19 10:40 Lovenox SUB-Q Not Given QDAY [facility] Famotidine 20 mg 01/22/19 10:00 01/23/19 22:30 Pepcid IV 20 mg BID CHRISTINE Administration Hydralazine HCl 10 mg 01/23/19 04:41 01/23/19 05:00 Apresoline IV 10 mg Q4H PRN Administration FOR JONNIE BP> 160/90 Insulin Glargine 10 units 01/22/19 22:00 01/23/19 22:30 [facility] Human Lispro 0 unit 01/22/19 07:30 01/23/19 22:31 Humalog SUB-Q Not Given [facility] Protocol Labetalol HCl 200 mg 01/23/19 11:00 01/23/19 22:30 Normodyne PO 200 mg BID CHRISTINE Administration Linagliptin 5 mg 01/23/19 10:00 01/23/19 10:39 Tradjenta PO 5 mg QDAY CHRISTINE Administration Lisinopril 40 mg 01/23/19 10:00 01/23/19 10:37 Zestril PO 40 mg QDAY CHRISTINE Administration Magnesium Hydroxide 30 ml 01/21/19 23:51 Milk Of Magnesia PO Q4H PRN Constipation Metoclopramide HCl 10 mg 01/21/19 23:51 Reglan PO Q6H PRN Nausea And Vomiting Miscellaneous Medication 50 mcg 01/23/19 10:00 Vitamin D3 2,000 Unit Cap PO QDAY CHRISTINE Ondansetron HCl 4 mg 01/21/19 23:51 Zofran IV Q8H PRN Nausea And Vomiting Promethazine HCl 25 mg 01/21/19 23:51 Phenergan ME Q6H PRN Nausea And Vomiting Sodium Chloride 10 ml 01/21/19 23:51 Sodium Chloride Flush Syringe 10 Ml IV PRN PRN LINE FLUSH Nutrition/Malnutrition Assess - Dietary Evaluation Nutrition/Malnutrition Findings: Nutrition Notes Start: 01/23/19 10:32 Freq: Status: Active Protocol: Document 01/23/19 10:32 OL (Rec: 01/23/19 10:34 OL [id number]) Nutrition Notes Need for Assessment generated from: MD Order,Education Initial or Follow up Brief Note Current Diagnosis Coronary Artery Disease,Stroke Current Diet No diet ordered Labs/Tests A1c 10.2 Subjective/Other Information RD consult for diet education. Pt. s/p stroke #1 Nutrition Diagnosis Food and nutrition-related knowledge deficit Etiology lack of exposure to nutrition related information As Evidenced by Signs and Symptoms pt. has never received DM diet education, pt. s/p stroke, A1c 10.2 Nutrition Intervention Teaching Recipient Patient Learning Readiness Good Teaching Methods Discussion,Handout Response to Teaching Verbalize understanding Education Handouts Provided CHO counting for people with DM Stroke MNT Barriers to Learning No Barriers RD phone number provided Yes Patient aware of follow up options Yes Revisit per MD consult or patient Sign Off request:
[2019-01-24] MEDS: HumaLOG SUB-Q SCH ×4 (09:43→23:41)
[2019-01-24] MEDS: WELLBUTRIN SR PO SCH ×2 (09:44→22:44)
[2019-01-24] MEDS: NORMODYNE PO SCH ×2 (09:44→22:44)
[2019-01-24] MEDS: TRADJENTA PO SCH (09:44)
[2019-01-24] MEDS: PLAVIX PO SCH (09:44)
[2019-01-24] MEDS: ZESTRIL PO SCH (09:44)
[2019-01-24] MEDS: PEPCID IV SCH ×2 (09:44→22:45)
[2019-01-24] MEDS: LOVENOX SUB-Q SCH (09:48)
[2019-01-24] MEDS: XANAX PO PRN ×2 (09:54→22:44)
--- NOTE | 2019-01-24 15:41 | Progress Note ---
Assessment and Plan Patient awake and alert. No complaint of chest pain,shortness of breath or cough. Resting on room air. O2 saturation 97%. Patient following commands - Patient Problems (1) CVA (cerebral vascular accident) Current Visit: Yes Status: Acute Qualifiers: CVA mechanism: unspecified Qualified Code(s): I63.9 - Cerebral infarction, unspecified Plan to address problem: Management as per neurology. Aspiration precautions. 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 Subjective Date of service: 01/24/19 Interval history: Patient is alert and awake. No complaint of chest pain, shortness of breath or cough. Resting on room air. O2 saturation 97%. Patient following commands. Objective Vital Signs - 12hr 01/24/19 01/24/19 01/24/19 07:00 08:31 08:33 Temperature 98.3 F Pulse Rate 80 82 80 Respiratory 18 Rate Blood Pressure Blood Pressure 145/77 [Left] O2 Sat by Pulse 100 99 Oximetry 01/24/19 01/24/19 13:56 13:58 Temperature 98.0 F Pulse Rate 81 Respiratory 18 Rate Blood Pressure 153/50 Blood Pressure [Left] O2 Sat by Pulse 98 Oximetry Constitutional: no acute distress, alert Eyes: non-icteric ENT: oropharynx moist Neck: supple, no lymphadenopathy Ascultation: Bilateral: diminished breath sounds Cardiovascular: regular rate and rhythm Gastrointestinal: normoactive bowel sounds, non-tender, non-distended Integumentary: normal Extremities: no cyanosis Psychiatric: depressed CBC and BMP: 01/25/19 07:00 01/25/19 07:00 ABG, PT/INR, D-dimer: PT/INR, D-dimer PT 12.5 Sec. (12.2-14.9) 01/21/19 22:04 INR 0.88 (0.87-1.13) 01/21/19 22:04 Abnormal lab findings: Abnormal Labs 01/21/19 01/21/19 01/21/19 21:55 22:04 22:04 Plt Count 115 L [place] % (Auto) 8.2 H APTT BUN 23 H Glucose 353 H POC Glucose 316 H Hemoglobin A1c CK-MB (CK-2) Rel Index Cholesterol LDL Cholesterol Direct HDL Cholesterol 01/21/19 01/21/19 01/22/19 22:04 22:04 05:03 Plt Count [place] % (Auto) APTT 22.9 L BUN Glucose POC Glucose Hemoglobin A1c 10.2 H CK-MB (CK-2) Rel Index 5.1 H Cholesterol LDL Cholesterol Direct HDL Cholesterol 01/22/19 01/22/19 01/22/19 05:03 07:49 13:50 Plt Count [place] % (Auto) APTT BUN Glucose POC Glucose 230 H 479 H Hemoglobin A1c CK-MB (CK-2) Rel Index Cholesterol 213 H LDL Cholesterol Direct 144 H HDL Cholesterol 69 H 01/22/19 01/22/19 01/23/19 17:32 21:27 09:36 Plt Count [place] % (Auto) APTT BUN Glucose POC Glucose 357 H 304 H 131 H Hemoglobin A1c CK-MB (CK-2) Rel Index Cholesterol LDL Cholesterol Direct HDL Cholesterol 01/23/19 01/23/19 01/23/19 12:00 17:46 21:27 Plt Count [place] % (Auto) APTT BUN Glucose POC Glucose 310 H 205 H 66 L Hemoglobin A1c CK-MB (CK-2) Rel Index Cholesterol LDL Cholesterol Direct HDL Cholesterol 01/24/19 11:40 Plt Count [place] % (Auto) APTT BUN Glucose POC Glucose 323 H Hemoglobin A1c CK-MB (CK-2) Rel Index Cholesterol LDL Cholesterol Direct HDL Cholesterol
[2019-01-24] MEDS: LANTUS SUB-Q SCH (23:40)
[2019-01-25] MEDS: APRESOLINE IV PRN (04:55)
[2019-01-25 07:20] LABS: Basophils % (Auto) 0.5 % (0.0-1.8); Eosinophils # (Auto) 0.1 K/mm3 (0.0-0.4); Eosinophils % (Auto) 1.3 % (0.0-4.3); Hematocrit 30.8 % (30.3-42.9); Hemoglobin 10.4 gm/dl (10.1-14.3); Lymphocytes # (Auto) 2.4 K/mm3 (1.2-5.4); Lymphocytes % (Auto) 33.7 % (13.4-35.0); Mean Corpuscular HGB Conc 34 % (30-34); Mean Corpuscular Volume 93 fl (79-97); Monocytes # (Auto) 0.7 K/mm3 (0.0-0.8); Monocytes % (Auto) 9.8 % (0.0-7.3); Platelet Count 111 K/mm3 (140-440); Red Blood Count 3.31 M/mm3 (3.65-5.03); Red Cell Distribution Width 13.9 % (13.2-15.2)
[2019-01-25 07:46] LABS: Calcium 8.5 mg/dL (8.4-10.2)
[2019-01-25] MEDS: HumaLOG SUB-Q SCH ×4 (08:30→22:13)
--- NOTE | 2019-01-25 09:33 | XRay Report ---
ROUTINE CHEST, TWO VIEWS: HISTORY: Possible aspiration/bilateral diminished breath sounds. Previous CABG changes. Normal heart size and pulmonary vessels. There is partial atelectasis in the right middle lobe. Otherwise, the lungs are clear. No pleural fluid or pneumothorax. IMPRESSION: No acute process. Partial atelectasis in the right middle lobe.
[2019-01-25] MEDS: LOVENOX SUB-Q SCH ×3 (10:59→11:29)
[2019-01-25] MEDS: PLAVIX PO SCH (11:00)
[2019-01-25] MEDS: TRADJENTA PO SCH (11:00)
[2019-01-25] MEDS: ZESTRIL PO SCH (11:00)
[2019-01-25] MEDS: WELLBUTRIN SR PO SCH ×2 (11:00→22:23)
[2019-01-25] MEDS: NORMODYNE PO SCH ×2 (11:00→22:23)
[2019-01-25] MEDS: PEPCID IV SCH ×2 (11:00)
--- NOTE | 2019-01-25 11:31 | Progress Note ---
Assessment and Plan Assessment and plan: Acute CVA. TPA was suggested by the tele-neurologist. However, patient refused. MRI reveals no acute CVA or brain mass. Patient with stable chronic infarcts in the superior left parietal occipital watershed region and posterior left occipital lobe. MRA shows findings of occlusion of the left carotid bifurcation and proximal left ICA with distal reconstitution and or retrograde filling. 75% diameter stenosis proximal right ICA. Carotid Doppler reveals right ICA stenosis of 50-79%. Left carotid artery with RCA stent with no evidence of stenosis. And echocardiogram. Neurology consultation pending. PT/OT. Patient with history of CVA in 2006. CT scan of the brain that showed chronic infarct but no acute infarction or mass effect. Right ICA stenosis. Vascular surgery consulted. Accelerated hypertension. Cont. antihypertensives. Atrial fibrillation. Rate controlled. Diabetes mellitus type 2, uncontrolled. Continue Accu-Cheks and sliding scale insulin. Better controlled. Hemoglobin A1c 10.2. Cont. Lantus to 20 units at bedtime Hyperlipidemia. Continue statin. Anxiety disorder. Resume Xanax. Disposition. Physical therapy recommended acute rehabilitation History Interval history: No known issues overnight. Patient still complains of right upper and lower extremity weakness. Hospitalist Physical - Constitutional Vitals: Temp Pulse Resp BP Pulse Ox 98.1 F 89 18 128/50 98 01/25/19 07:09 01/25/19 11:00 01/25/19 07:09 01/25/19 11:00 01/25/19 04:10 General appearance: Present: no acute distress - EENT Eyes: Present: PERRL, EOM intact ENT: hearing intact, clear oral mucosa, dentition normal - Neck Neck: Present: supple, normal ROM - Respiratory Respiratory effort: normal Respiratory: bilateral: CTA - Cardiovascular Rhythm: regular Heart Sounds: Present: S1 & S2. Absent: gallop, rub - Extremities Extremities: no ischemia, No edema, Full ROM - Abdominal General gastrointestinal: soft, non-tender, non-distended, normal bowel sounds - Integumentary Integumentary: Present: clear, warm, dry - Neurologic Neurologic: CNII-XII intact, moves all extremities Results - Labs CBC & Chem 7: 01/25/19 07:00 01/25/19 07:00 Labs: Laboratory Last Values WBC 7.3 K/mm3 (4.5-11.0) 01/25/19 07:00 RBC 3.31 M/mm3 (3.65-5.03) L 01/25/19 07:00 Hgb 10.4 gm/dl (10.1-14.3) 01/25/19 07:00 Hct 30.8 % (30.3-42.9) 01/25/19 07:00 MCV 93 fl (79-97) 01/25/19 07:00 MCH 32 pg (28-32) 01/25/19 07:00 MCHC 34 % (30-34) 01/25/19 07:00 RDW 13.9 % (13.2-15.2) 01/25/19 07:00 Plt Count 111 K/mm3 (140-440) L 01/25/19 07:00 Lymph % (Auto) 33.7 % (13.4-35.0) 01/25/19 07:00 [place] % (Auto) 9.8 % (0.0-7.3) H 01/25/19 07:00 Eos % (Auto) 1.3 % (0.0-4.3) 01/25/19 07:00 Baso % (Auto) 0.5 % (0.0-1.8) 01/25/19 07:00 Lymph # 2.4 K/mm3 (1.2-5.4) 01/25/19 07:00 [place] # 0.7 K/mm3 (0.0-0.8) 01/25/19 07:00 Eos # 0.1 K/mm3 (0.0-0.4) 01/25/19 07:00 Baso # 0.0 K/mm3 (0.0-0.1) 01/25/19 07:00 Seg Neutrophils % 54.7 % (40.0-70.0) 01/25/19 07:00 Seg Neutrophils # 4.0 K/mm3 (1.8-7.7) 01/25/19 07:00 PT 12.5 Sec. (12.2-14.9) 01/21/19 22:04 INR 0.88 (0.87-1.13) 01/21/19 22:04 APTT 22.9 Sec. (24.2-36.6) L 01/21/19 22:04 Thrombin Time 17.9 Sec. (15.1-19.6) 01/21/19 22:04 Sodium 139 mmol/L (137-145) 01/25/19 07:00 Potassium 4.7 mmol/L (3.6-5.0) D 01/25/19 07:00 Chloride 107.0 mmol/L (98-107) 01/25/19 07:00 Carbon Dioxide 24 mmol/L (22-30) 01/25/19 07:00 Anion Gap 13 mmol/L 01/25/19 07:00 BUN 30 mg/dL (7-17) H 01/25/19 07:00 Creatinine 1.5 mg/dL (0.7-1.2) H 01/25/19 07:00 Estimated GFR 35 ml/min 01/25/19 07:00 BUN/Creatinine Ratio 20 % 01/25/19 07:00 Glucose 162 mg/dL (65-100) H 01/25/19 07:00 POC Glucose 120 (70-105) H 01/25/19 09:14 Hemoglobin A1c 10.2 % (4-6) H 01/22/19 05:03 Calcium 8.5 mg/dL (8.4-10.2) 01/25/19 07:00 Total Creatine Kinase 33 units/L (30-135) 01/21/19 22:04 CK-MB (CK-2) 1.7 ng/mL (0.0-4.0) 01/21/19 22:04 CK-MB (CK-2) Rel Index 5.1 (0-4) H 01/21/19 22:04 Troponin T < 0.010 ng/mL (0.00-0.029) 01/21/19 22:04 Triglycerides 120 mg/dL (2-149) 01/22/19 05:03 Cholesterol 213 mg/dL (50-199) H 01/22/19 05:03 LDL Cholesterol Direct 144 mg/dL (50-130) H 01/22/19 05:03 HDL Cholesterol 69 mg/dL (40-59) H 01/22/19 05:03 Cholesterol/HDL Ratio 3.08 % 01/22/19 05:03 Urine Color Straw (Yellow) 01/21/19 23:25 Urine Turbidity Clear (Clear) 01/21/19 23:25 Urine pH 7.0 (5.0-7.0) 01/21/19 23:25 Ur Specific [place] 1.007 (1.003-1.030) 01/21/19 23:25 Urine Protein 30 mg/dl mg/dL (Negative) 01/21/19 23:25 Urine Glucose (UA) >=500 mg/dL (Negative) 01/21/19 23:25 Urine Ketones Tr mg/dL (Negative) 01/21/19 23:25 Urine Blood Neg (Negative) 01/21/19 23:25 Urine Nitrite Neg (Negative) 01/21/19 23:25 Urine Bilirubin Neg (Negative) 01/21/19 23:25 Urine Urobilinogen < 2.0 mg/dL (<2.0) 01/21/19 23:25 Ur Leukocyte Esterase Neg (Negative) 01/21/19 23:25 Urine WBC (Auto) 1.0 /HPF (0.0-6.0) 01/21/19 23:25 Urine RBC (Auto) 1.0 /HPF (0.0-6.0) 01/21/19 23:25 U Epithel Cells (Auto) 5.0 /HPF (0-13.0) 01/21/19 23:25 Urine Bacteria (Auto) 1+ /HPF (Negative) 01/21/19 23:25 Urine Opiates Screen Presumptive negative 01/21/19 23:25 Urine Methadone Screen Presumptive negative 01/21/19 23:25 Ur Barbiturates Screen Presumptive negative 01/21/19 23:25 Ur Phencyclidine Scrn Presumptive negative 01/21/19 23:25 Ur Amphetamines Screen Presumptive negative 01/21/19 23:25 U Benzodiazepines Scrn Presumptive negative 01/21/19 23:25 Urine Cocaine Screen Presumptive negative 01/21/19 23:25 U Marijuana (THC) Screen Presumptive negative 01/21/19 23:25 Drugs of Abuse Note Disclamer 01/21/19 23:25 Plasma/Serum Alcohol < 0.01 % (0-0.07) 01/21/19 22:04 Active Medications - Current Medications Current Medications: Generic Name Dose Route Start Last Admin Trade Name Freq PRN Reason Stop Dose Admin Acetaminophen 650 mg 01/21/19 23:51 01/23/19 11:43 Tylenol PO 650 mg Q4H PRN Administration Pain, Mild (1-3) Alprazolam 0.5 mg 01/23/19 11:33 01/24/19 09:54 Xanax PO 0.5 mg QAM PRN Administration Anxiety Alprazolam 1 mg 01/23/19 21:00 01/24/19 22:44 Xanax PO 1 mg QHS PRN Administration Anxiety Atorvastatin Calcium 40 mg 01/22/19 22:00 01/24/19 22:44 Lipitor PO 40 mg QHS CHRISTINE Administration Bisacodyl 10 mg 01/21/19 23:51 Dulcolax [place] QDAY PRN Constipation Bupropion HCl 150 mg 01/22/19 22:00 01/25/19 11:00 Wellbutrin Sr PO 150 mg BID CHRISTINE Administration Clopidogrel Bisulfate 75 mg 01/22/19 10:00 01/25/19 11:00 Plavix PO 75 mg QDAY CHRISTINE Administration Dextrose 50 ml 01/21/19 23:51 D50w (25gm) Syringe IV PRN PRN Hypoglycemia Enoxaparin Sodium 30 mg 01/25/19 11:00 Lovenox SUB-Q QDAY CHRISTINE Famotidine 20 mg 01/25/19 11:00 01/25/19 11:00 Pepcid IV 20 mg DAILY CHRISTINE Administration Hydralazine HCl 10 mg 01/23/19 04:41 01/25/19 04:55 Apresoline IV 10 mg Q4H PRN Administration FOR JONNIE BP> 160/90 Insulin Glargine 10 units 01/22/19 22:00 01/24/19 23:40 Lantus SUB-Q 10 units QHS CHRISTINE Administration Insulin Human Lispro 0 unit 01/22/19 07:30 01/25/19 08:30 Humalog SUB-Q [facility] Protocol Labetalol HCl 200 mg 01/23/19 11:00 01/25/19 11:00 Normodyne PO 200 mg BID CHRISTINE Administration Linagliptin 5 mg 01/23/19 10:00 01/25/19 11:00 Tradjenta PO 5 mg QDAY CHRISTINE Administration Lisinopril 40 mg 01/23/19 10:00 01/25/19 11:00 Zestril PO 40 mg QDAY CHRISTINE Administration Magnesium Hydroxide 30 ml 01/21/19 23:51 Milk Of Magnesia PO Q4H PRN Constipation Metoclopramide HCl 10 mg 01/21/19 23:51 Reglan PO Q6H PRN Nausea And Vomiting Miscellaneous Medication 50 mcg 01/23/19 10:00 Vitamin D3 2,000 Unit Cap PO QDAY CHRISTINE Ondansetron HCl 4 mg 01/21/19 23:51 Zofran IV Q8H PRN Nausea And Vomiting Promethazine HCl 25 mg 01/21/19 23:51 Phenergan [place] Q6H PRN Nausea And Vomiting Sodium Chloride 10 ml 01/21/19 23:51 Sodium Chloride Flush Syringe 10 Ml IV PRN PRN LINE FLUSH Nutrition/Malnutrition Assess - Dietary Evaluation Nutrition/Malnutrition Findings: Nutrition Notes Start: 01/23/19 10:32 Freq: Status: Active Protocol: Document 01/23/19 10:32 OL (Rec: 01/23/19 10:34 OL [id number]) Nutrition Notes Need for Assessment generated from: MD Order,Education Initial or Follow up Brief Note Current Diagnosis Coronary Artery Disease,Stroke Current Diet No diet ordered Labs/Tests A1c 10.2 Subjective/Other Information RD consult for diet education. Pt. s/p stroke #1 Nutrition Diagnosis Food and nutrition-related knowledge deficit Etiology lack of exposure to nutrition related information As Evidenced by Signs and Symptoms pt. has never received DM diet education, pt. s/p stroke, A1c 10.2 Nutrition Intervention Teaching Recipient Patient Learning Readiness Good Teaching Methods Discussion,Handout Response to Teaching Verbalize understanding Education Handouts Provided CHO counting for people with DM Stroke MNT Barriers to Learning No Barriers RD phone number provided Yes Patient aware of follow up options Yes Revisit per MD consult or patient Sign Off request:
--- NOTE | 2019-01-25 18:29 | Consultation ---
History of Present Illness - Reason for Consult Consult date: 01/25/19 Carotid stenosis - History of Present Illness This pt was admitted via the ER on 01/21/19 due to right sided weakness. A stroke work up was initiated. MRI showed a stable chronic left hemisphere watershed infarct without acute findings. The pt has a h/o a significant CVA in 2006 which left her with a residual RUE weakness. She underwent a left carotid artery angioplasty/stent several months later. She was initially treated with dual antiplatelet therapy. She has remained on Plavix, but stopped taking aspirin after 3 months. She had a carotid duplex which suggested 50-79% stenosis of the RYLIE, and "<50%" of her LICA (with a stent present). A vascular surgery consult has been requested to further evaluate. The pt states she developed a headache with subsequent numbness. When questioned about the location of numbness. She stated "all over". I confirmed this was bilateral upper and lower extremities. She stated, "Yes". I asked about weakness to her extremities. She again stated she could not move either upper or lower extremity bilaterally. She subsequently stated she walked to the ambulance. I questioned her about walking. She said her leg started working again, and subsequently her left arm weakness improved. Her Right upper extremity which has long standing weakness, was worse and did not get better. Past History Past Medical History: CAD, diabetes, hypertension, hyperlipidemia, other (history of kidney disease) Past Surgical History: CABG Social history: no significant social history, lives with family Family history: no significant family history, CAD (father), hypertension, s troke (younger brother), other (Sister with kidney disease) Medications and Allergies Allergies Allergy/AdvReac Type Severity Reaction Status Date / Time iodine Allergy Hives Verified 01/21/19 22:50 Penicillins Allergy Anaphylaxis Verified 01/21/19 21:27 Sulfa (Sulfonamide Allergy Hives Verified 01/21/19 21:27 Antibiotics) Home Medications Medication Instructions Recorded Confirmed Last Taken Type Clopidogrel Bisulfate [Clopidogrel] 75 mg PO QDAY 01/21/19 01/22/19 01/21/19 History 75mg ALPRAZolam [Xanax TAB] 1 mg PO TID PRN MDD 4mg 01/22/19 01/22/19 Unknown History Carvedilol 25 mg PO BID 01/22/19 01/22/19 01/21/19 History 25mg Co Q-10 100 mg Softgel 100 mg PO QDAY 01/22/19 01/22/19 01/21/19 History Linagliptin [Tradjenta] 5 mg PO QDAY 01/22/19 01/22/19 01/21/19 History 5mg Lisinopril [Zestril TAB] 40 mg PO QDAY 01/22/19 01/22/19 01/21/19 History 40mg Rosuvastatin Calcium 20 mg PO QDAY 01/22/19 01/22/19 01/21/19 History 20mg Vitamin D3 2,000 UNIT CAP 50 mcg PO QDAY 01/22/19 01/22/19 01/21/19 History 50MCG buPROPion SR [Wellbutrin SR] 150 mg PO BID 01/22/19 01/22/19 01/21/19 History 150mg Active Meds: Active Medications Acetaminophen (Tylenol) 650 mg PO Q4H PRN PRN Reason: Pain, Mild (1-3) Last Admin: 01/23/19 11:43 Dose: 650 mg Documented by: Alprazolam (Xanax) 0.5 mg PO QAM PRN PRN Reason: Anxiety Last Admin: 01/24/19 09:54 Dose: 0.5 mg Documented by: Alprazolam (Xanax) 1 mg PO QHS PRN PRN Reason: Anxiety Last Admin: 01/24/19 22:44 Dose: 1 mg Documented by: Atorvastatin Calcium (Lipitor) 40 mg PO QHS [facility] Last Admin: 01/24/19 22:44 Dose: 40 mg Documented by: Bisacodyl (Dulcolax) 10 mg ID QDAY PRN PRN Reason: Constipation Bupropion HCl (Wellbutrin Sr) 150 mg PO BID [facility] Last Admin: 01/25/19 11:00 Dose: 150 mg Documented by: Clopidogrel Bisulfate (Plavix) 75 mg PO QDAY [facility] Last Admin: 01/25/19 11:00 Dose: 75 mg Documented by: Dextrose (D50w (25gm) Syringe) 50 ml IV PRN PRN PRN Reason: Hypoglycemia Enoxaparin Sodium (Lovenox) 30 mg SUB-Q QDAY [facility] Last Admin: 01/25/19 11:29 Dose: 30 mg Documented by: Famotidine (Pepcid) 20 mg IV DAILY [facility] Last Admin: 01/25/19 11:00 Dose: 20 mg Documented by: Hydralazine HCl (Apresoline) 10 mg IV Q4H PRN PRN Reason: FOR JONNIE BP> 160/90 Last Admin: 01/25/19 04:55 Dose: 10 mg Documented by: Insulin Glargine (Lantus) 10 units SUB-Q QHS [facility] Last Admin: 01/24/19 23:40 Dose: 10 units Documented by: Insulin Human Lispro (Humalog) 0 unit SUB-Q ACHS [facility]; Protocol Last Admin: 01/25/19 17:30 Dose: 1 unit Documented by: Labetalol HCl (Normodyne) 200 mg PO BID [facility] Last Admin: 01/25/19 11:00 Dose: 200 mg Documented by: Linagliptin (Tradjenta) 5 mg PO QDAY [facility] Last Admin: 01/25/19 11:00 Dose: 5 mg Documented by: Lisinopril (Zestril) 40 mg PO QDAY [facility] Last Admin: 01/25/19 11:00 Dose: 40 mg Documented by: Magnesium Hydroxide (Milk Of Magnesia) 30 ml PO Q4H PRN PRN Reason: Constipation Metoclopramide HCl (Reglan) 10 mg PO Q6H PRN PRN Reason: Nausea And Vomiting Miscellaneous Medication (Vitamin D3 2,000 Unit Cap) 50 mcg PO QDAY [facility] Ondansetron HCl (Zofran) 4 mg IV Q8H PRN PRN Reason: Nausea And Vomiting Promethazine HCl (Phenergan) 25 mg ID Q6H PRN PRN Reason: Nausea And Vomiting Sodium Chloride (Sodium Chloride Flush Syringe 10 Ml) 10 ml IV PRN PRN PRN Reason: LINE FLUSH Review of Systems All systems: negative Exam - Constitutional Vitals: Temp Pulse Resp BP Pulse Ox 98.3 F 89 18 172/66 98 01/25/19 14:12 01/25/19 11:00 01/25/19 14:12 01/25/19 14:12 01/25/19 04:10 General appearance: Present: no acute distress - EENT Eyes: Present: EOM intact ENT: hearing intact - Neck Neck: Present: supple - Respiratory Respiratory effort: normal - Extremities Extremities: no ischemia, No edema, normal temperature - Psychiatric Psychiatric: no appropriate mood/affect (emotionally labile, tearful at times during interview.), cooperative - Neurologic Neurologic: other (right upper ext weakness, moves arm slightly to command) Results - Labs CBC & Chem 7: 01/25/19 07:00 01/25/19 07:00 Labs: Abnormal lab results 01/24/19 01/25/19 01/25/19 Range/Units 22:13 07:00 07:00 RBC 3.31 L (3.65-5.03) M/mm3 Plt Count 111 L (140-440) K/mm3 [place] % (Auto) 9.8 H (0.0-7.3) % BUN 30 H (7-17) mg/dL Creatinine 1.5 H (0.7-1.2) mg/dL Glucose 162 H (65-100) mg/dL POC Glucose 200 H (70-105) 01/25/19 01/25/19 01/25/19 Range/Units 09:14 12:48 16:26 RBC (3.65-5.03) M/mm3 Plt Count (140-440) K/mm3 [place] % (Auto) (0.0-7.3) % BUN (7-17) mg/dL Creatinine (0.7-1.2) mg/dL Glucose (65-100) mg/dL POC Glucose 120 H 241 H 213 H (70-105) Assessment and Plan This pt was admitted with an acute onset of a possible neurologic event. Neurology was consulted. The MRI was negative for any acute event. As part of the work up a carotid duplex was ordered. This suggest 50-79% stenosis on the right, and <50% on the left (following previous stent placement). A vascular surgery consult has been requested to further evaluate. The pt is a poor historian. Her symptoms are vague and vary throughout the history. She does not appear to have acute hemispheric symptoms currently. I'm not convinced she has a symptomatic carotid lesion. Considered additional imaging, but pt has an allergy to iodinated contrast material which raises the risk associated with a CTA. She had a non-contrasted MRA which was non- diagnostic (frequently overestimating stenosis), and interpreted her carotid stent as an occluded carotid artery. An MRA with contrast would be more accurate, but is at increased risk of Nephrogenic Systemic Fibrosis due to her chronic renal failure. The risk associated with additional imaging likely outweigh the benefits a this point. No vascular surgery intervention recommended at this time. Consider restarting dual antiplatelet therapy. - Patient Problems (1) Carotid stenosis Current Visit: Yes Status: Acute (2) History of carotid angioplasty Current Visit: Yes Status: Acute (3) TIA (transient ischemic attack) Current Visit: Yes Status: Acute (4) Diabetes mellitus Current Visit: Yes Status: Acute (5) HTN (hypertension) Current Visit: Yes Status: Acute (6) CAD (coronary artery disease) Current Visit: Yes Status: Acute (7) H/O: CVA (cerebrovascular accident) Current Visit: Yes Status: Acute (8) Kidney disease Current Visit: Yes Status: Acute (9) Allergy to iodinated contrast Current Visit: Yes Status: Acute
--- NOTE | 2019-01-25 19:34 | Progress Note ---
Assessment and Plan Patient resting on room air.No complaint of chest pain, shortness of breath or cough.O2 saturation 98%. - Patient Problems (1) CVA (cerebral vascular accident) Current Visit: Yes Status: Acute Qualifiers: CVA mechanism: unspecified Qualified Code(s): I63.9 - Cerebral infarction, unspecified Plan to address problem: Management as per neurology. Aspiration precautions. 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 (3) Atelectasis of right lung Current Visit: Yes Status: Acute Plan to address problem: Atelectasis right middle lobe. Deep breathing and cough. Incentive spirometry. Albuteral aerosol treatments q 6 hours. (4) Diabetes mellitus Current Visit: Yes Status: Acute Plan to address problem: Management as per primary care. (5) HTN (hypertension) Current Visit: Yes Status: Acute Plan to address problem: Management as per primary care. Subjective Date of service: 01/25/19 Interval history: Patient resting on room air.No complaint of chest pain, shortness of breath or cough.O2 saturation 98%. Objective Vital Signs - 12hr 01/25/19 01/25/19 11:00 14:12 Temperature 98.3 F Pulse Rate 89 Respiratory 18 Rate Blood Pressure 128/50 172/66 Constitutional: no acute distress, alert Eyes: non-icteric ENT: oropharynx moist Neck: supple Effort: normal Ascultation: Bilateral: clear Cardiovascular: regular rate and rhythm Gastrointestinal: normoactive bowel sounds, soft, non-tender Integumentary: normal Extremities: no cyanosis, no edema Neurologic: non-focal exam, pupils equal and round, CN II-XII normal Psychiatric: depressed CBC and BMP: 01/25/19 07:00 01/25/19 07:00 ABG, PT/INR, D-dimer: PT/INR, D-dimer PT 12.5 Sec. (12.2-14.9) 01/21/19 22:04 INR 0.88 (0.87-1.13) 01/21/19 22:04 Abnormal lab findings: Abnormal Labs 01/21/19 01/21/19 01/21/19 21:55 22:04 22:04 RBC Plt Count 115 L [place] % (Auto) 8.2 H APTT BUN 23 H Creatinine Glucose 353 H POC Glucose 316 H Hemoglobin A1c CK-MB (CK-2) Rel Index Cholesterol LDL Cholesterol Direct HDL Cholesterol 01/21/19 01/21/19 01/22/19 22:04 22:04 05:03 RBC Plt Count [place] % (Auto) APTT 22.9 L BUN Creatinine Glucose POC Glucose Hemoglobin A1c 10.2 H CK-MB (CK-2) Rel Index 5.1 H Cholesterol LDL Cholesterol Direct HDL Cholesterol 01/22/19 01/22/19 01/22/19 05:03 07:49 13:50 RBC Plt Count [place] % (Auto) APTT BUN Creatinine Glucose POC Glucose 230 H 479 H Hemoglobin A1c CK-MB (CK-2) Rel Index Cholesterol 213 H LDL Cholesterol Direct 144 H HDL Cholesterol 69 H 01/22/19 01/22/19 01/23/19 17:32 21:27 09:36 RBC Plt Count [place] % (Auto) APTT BUN Creatinine Glucose POC Glucose 357 H 304 H 131 H Hemoglobin A1c CK-MB (CK-2) Rel Index Cholesterol LDL Cholesterol Direct HDL Cholesterol 01/23/19 01/23/19 01/23/19 12:00 17:46 21:27 RBC Plt Count [place] % (Auto) APTT BUN Creatinine Glucose POC Glucose 310 H 205 H 66 L Hemoglobin A1c CK-MB (CK-2) Rel Index Cholesterol LDL Cholesterol Direct HDL Cholesterol 01/24/19 01/24/19 01/24/19 11:40 16:47 22:13 RBC Plt Count [place] % (Auto) APTT BUN Creatinine Glucose POC Glucose 323 H 243 H 200 H Hemoglobin A1c CK-MB (CK-2) Rel Index Cholesterol LDL Cholesterol Direct HDL Cholesterol 01/25/19 01/25/19 01/25/19 07:00 07:00 09:14 RBC 3.31 L Plt Count 111 L [place] % (Auto) 9.8 H APTT BUN 30 H Creatinine 1.5 H Glucose 162 H POC Glucose 120 H Hemoglobin A1c CK-MB (CK-2) Rel Index Cholesterol LDL Cholesterol Direct HDL Cholesterol 01/25/19 01/25/19 12:48 16:26 RBC Plt Count [place] % (Auto) APTT BUN Creatinine Glucose POC Glucose 241 H 213 H Hemoglobin A1c CK-MB (CK-2) Rel Index Cholesterol LDL Cholesterol Direct HDL Cholesterol Chest x-ray: report reviewed (Partial atelectasis right middle lobe.), image reviewed
[2019-01-25] MEDS: LANTUS SUB-Q SCH (22:12)
[2019-01-25] MEDS: XANAX PO PRN (22:27)
[2019-01-26] MEDS: PROVENTIL IH SCH ×3 (03:16→16:24)
[2019-01-26] MEDS: WELLBUTRIN SR PO SCH (09:10)
[2019-01-26] MEDS: PEPCID IV SCH (09:10)
[2019-01-26] MEDS: PLAVIX PO SCH (09:11)
[2019-01-26] MEDS: NORMODYNE PO SCH (09:11)
[2019-01-26] MEDS: TRADJENTA PO SCH (09:11)
[2019-01-26] MEDS: ZESTRIL PO SCH (09:11)
[2019-01-26] MEDS: LOVENOX SUB-Q SCH (09:12)
[2019-01-26] MEDS: HumaLOG SUB-Q SCH ×3 (09:13→17:26)
--- NOTE | 2019-01-26 09:49 | Event Note ---
Date: 01/26/19 F/u with pt this am. She denies new complaints at present. "I feel better today". She believes that her recent event was the result of abrupt withdrawal of Xanax. I discussed the risk associated with additional imaging, and that we do not recommend additional imaging at this time. I emphasized that there are also risks that she could have additional events, and if so then further work up maybe justified at that time. She states understanding and agrees. Recommend restarting dual antiplatelet therapy.
[2019-01-26] MEDS: XANAX PO PRN (10:04)
--- NOTE | 2019-01-26 12:02 | Progress Note ---
Assessment and Plan Assessment and plan: Acute CVA. TPA was suggested by the tele-neurologist. However, patient refused. MRI reveals no acute CVA or brain mass. Patient with stable chronic infarcts in the superior left parietal occipital watershed region and posterior left occipital lobe. MRA shows findings of occlusion of the left carotid bifurcation and proximal left ICA with distal reconstitution and or retrograde filling. 75% diameter stenosis proximal right ICA. Carotid Doppler reveals right ICA stenosis of 50-79%. Left carotid artery with RCA stent with no evidence of stenosis. And echocardiogram. Neurology consultation pending. PT/OT. Patient with history of CVA in 2006. CT scan of the brain that showed chronic infarct but no acute infarction or mass effect. Right ICA stenosis. Vascular surgery consulted. Accelerated hypertension. Cont. antihypertensives. Atrial fibrillation. Rate controlled. Diabetes mellitus type 2, uncontrolled. Continue Accu-Cheks and sliding scale insulin. Better controlled. Hemoglobin A1c 10.2. Cont. Lantus to 20 units at bedtime Hyperlipidemia. Continue statin. Anxiety disorder. Resume Xanax. Disposition. Physical therapy recommended acute rehabilitation Hospitalist Physical - Constitutional Vitals: Temp Pulse Resp BP Pulse Ox 98.0 F 76 18 149/59 97 01/26/19 04:32 01/26/19 09:11 01/26/19 04:32 01/26/19 09:11 01/26/19 04:32 General appearance: Present: no acute distress Results - Labs CBC & Chem 7: 01/25/19 07:00 01/25/19 07:00 Labs: Laboratory Last Values WBC 7.3 K/mm3 (4.5-11.0) 01/25/19 07:00 RBC 3.31 M/mm3 (3.65-5.03) L 01/25/19 07:00 Hgb 10.4 gm/dl (10.1-14.3) 01/25/19 07:00 Hct 30.8 % (30.3-42.9) 01/25/19 07:00 MCV 93 fl (79-97) 01/25/19 07:00 MCH 32 pg (28-32) 01/25/19 07:00 MCHC 34 % (30-34) 01/25/19 07:00 RDW 13.9 % (13.2-15.2) 01/25/19 07:00 Plt Count 111 K/mm3 (140-440) L 01/25/19 07:00 Lymph % (Auto) 33.7 % (13.4-35.0) 01/25/19 07:00 [place] % (Auto) 9.8 % (0.0-7.3) H 01/25/19 07:00 Eos % (Auto) 1.3 % (0.0-4.3) 01/25/19 07:00 Baso % (Auto) 0.5 % (0.0-1.8) 01/25/19 07:00 Lymph # 2.4 K/mm3 (1.2-5.4) 01/25/19 07:00 [place]ell # 0.7 K/mm3 (0.0-0.8) 01/25/19 07:00 Eos # 0.1 K/mm3 (0.0-0.4) 01/25/19 07:00 Baso # 0.0 K/mm3 (0.0-0.1) 01/25/19 07:00 Seg Neutrophils % 54.7 % (40.0-70.0) 01/25/19 07:00 Seg Neutrophils # 4.0 K/mm3 (1.8-7.7) 01/25/19 07:00 PT 12.5 Sec. (12.2-14.9) 01/21/19 22:04 INR 0.88 (0.87-1.13) 01/21/19 22:04 APTT 22.9 Sec. (24.2-36.6) L 01/21/19 22:04 Thrombin Time 17.9 Sec. (15.1-19.6) 01/21/19 22:04 Sodium 139 mmol/L (137-145) 01/25/19 07:00 Potassium 4.7 mmol/L (3.6-5.0) D 01/25/19 07:00 Chloride 107.0 mmol/L (98-107) 01/25/19 07:00 Carbon Dioxide 24 mmol/L (22-30) 01/25/19 07:00 Anion Gap 13 mmol/L 01/25/19 07:00 BUN 30 mg/dL (7-17) H 01/25/19 07:00 Creatinine 1.5 mg/dL (0.7-1.2) H 01/25/19 07:00 Estimated GFR 35 ml/min 01/25/19 07:00 BUN/Creatinine Ratio 20 % 01/25/19 07:00 Glucose 162 mg/dL (65-100) H 01/25/19 07:00 POC Glucose 312 (70-105) H 01/26/19 11:23 Hemoglobin A1c 10.2 % (4-6) H 01/22/19 05:03 Calcium 8.5 mg/dL (8.4-10.2) 01/25/19 07:00 Total Creatine Kinase 33 units/L (30-135) 01/21/19 22:04 CK-MB (CK-2) 1.7 ng/mL (0.0-4.0) 01/21/19 22:04 CK-MB (CK-2) Rel Index 5.1 (0-4) H 01/21/19 22:04 Troponin T < 0.010 ng/mL (0.00-0.029) 01/21/19 22:04 Triglycerides 120 mg/dL (2-149) 01/22/19 05:03 Cholesterol 213 mg/dL (50-199) H 01/22/19 05:03 LDL Cholesterol Direct 144 mg/dL (50-130) H 01/22/19 05:03 HDL Cholesterol 69 mg/dL (40-59) H 01/22/19 05:03 Cholesterol/HDL Ratio 3.08 % 01/22/19 05:03 Urine Color Straw (Yellow) 01/21/19 23:25 Urine Turbidity Clear (Clear) 01/21/19 23:25 Urine pH 7.0 (5.0-7.0) 01/21/19 23:25 Ur Specific [place] 1.007 (1.003-1.030) 01/21/19 23:25 Urine Protein 30 mg/dl mg/dL (Negative) 01/21/19 23:25 Urine Glucose (UA) >=500 mg/dL (Negative) 01/21/19 23:25 Urine Ketones Tr mg/dL (Negative) 01/21/19 23:25 Urine Blood Neg (Negative) 01/21/19 23:25 Urine Nitrite Neg (Negative) 01/21/19 23:25 Urine Bilirubin Neg (Negative) 01/21/19 23:25 Urine Urobilinogen < 2.0 mg/dL (<2.0) 01/21/19 23:25 Ur Leukocyte Esterase Neg (Negative) 01/21/19 23:25 Urine WBC (Auto) 1.0 /HPF (0.0-6.0) 01/21/19 23:25 Urine RBC (Auto) 1.0 /HPF (0.0-6.0) 01/21/19 23:25 U Epithel Cells (Auto) 5.0 /HPF (0-13.0) 01/21/19 23:25 Urine Bacteria (Auto) 1+ /HPF (Negative) 01/21/19 23:25 Urine Opiates Screen Presumptive negative 01/21/19 23:25 Urine Methadone Screen Presumptive negative 01/21/19 23:25 Ur Barbiturates Screen Presumptive negative 01/21/19 23:25 Ur Phencyclidine Scrn Presumptive negative 01/21/19 23:25 Ur Amphetamines Screen Presumptive negative 01/21/19 23:25 U Benzodiazepines Scrn Presumptive negative 01/21/19 23:25 Urine Cocaine Screen Presumptive negative 01/21/19 23:25 U Marijuana (THC) Screen Presumptive negative 01/21/19 23:25 Drugs of Abuse Note Disclamer 01/21/19 23:25 Plasma/Serum Alcohol < 0.01 % (0-0.07) 01/21/19 22:04 Active Medications - Current Medications Current Medications: Generic Name Dose Route Start Last Admin Trade Name Freq PRN Reason Stop Dose Admin Acetaminophen 650 mg 01/21/19 23:51 01/23/19 11:43 Tylenol PO 650 mg Q4H PRN Administration Pain, Mild (1-3) Albuterol 2.5 mg 01/26/19 02:00 01/26/19 09:56 Proventil IH Not Given Q6HRT CHRISTINE Alprazolam 0.5 mg 01/23/19 11:33 01/26/19 10:04 Xanax PO 0.5 mg QAM PRN Administration Anxiety Alprazolam 1 mg 01/23/19 21:00 01/25/19 22:27 Xanax PO 1 mg QHS PRN Administration Anxiety Atorvastatin Calcium 40 mg 01/22/19 22:00 01/25/19 22:13 Lipitor PO 40 mg QHS CHRISTINE Administration Bisacodyl 10 mg 01/21/19 23:51 Dulcolax [place] QDAY PRN Constipation Bupropion HCl 150 mg 01/22/19 22:00 01/26/19 09:10 Wellbutrin Sr PO 150 mg BID CHRISTINE Administration Clopidogrel Bisulfate 75 mg 01/22/19 10:00 01/26/19 09:11 Plavix PO 75 mg QDAY CHRISTINE Administration Dextrose 50 ml 01/21/19 23:51 D50w (25gm) Syringe IV PRN PRN Hypoglycemia Enoxaparin Sodium 30 mg 01/25/19 11:00 01/26/19 09:12 Lovenox SUB-Q 30 mg QDAY CHRISTINE Administration Famotidine 20 mg 01/25/19 11:00 01/26/19 09:10 Pepcid IV 20 mg DAILY CHRISTINE Administration Hydralazine HCl 10 mg 01/23/19 04:41 01/25/19 04:55 Apresoline IV 10 mg Q4H PRN Administration FOR JONNIE BP> 160/90 Insulin Glargine 10 units 01/22/19 22:00 01/25/19 22:12 Lantus SUB-Q 10 units QHS CHRISTINE Administration Insulin Human Lispro 0 unit 01/22/19 07:30 01/26/19 09:13 Humalog SUB-Q 2 unit ACHS CHRISTINE Administration Protocol Labetalol HCl 200 mg 01/23/19 11:00 01/26/19 09:11 Normodyne PO 200 mg BID CHRISTINE Administration Linagliptin 5 mg 01/23/19 10:00 01/26/19 09:11 Tradjenta PO 5 mg QDAY [facility] Administration Lisinopril 40 mg 01/23/19 10:00 01/26/19 09:11 Zestril PO 40 mg QDAY CHRISTINE Administration Magnesium Hydroxide 30 ml 01/21/19 23:51 Milk Of Magnesia PO Q4H PRN Constipation Metoclopramide HCl 10 mg 01/21/19 23:51 Reglan PO Q6H PRN Nausea And Vomiting Miscellaneous Medication 50 mcg 01/23/19 10:00 Vitamin D3 2,000 Unit Cap PO QDAY CHRISTINE Ondansetron HCl 4 mg 01/21/19 23:51 Zofran IV Q8H PRN Nausea And Vomiting Promethazine HCl 25 mg 01/21/19 23:51 Phenergan [place] Q6H PRN Nausea And Vomiting Sodium Chloride 10 ml 01/21/19 23:51 Sodium Chloride Flush Syringe 10 Ml IV PRN PRN LINE FLUSH Nutrition/Malnutrition Assess - Dietary Evaluation Nutrition/Malnutrition Findings: Nutrition Notes Start: 01/23/19 10:32 Freq: Status: Active Protocol: Document 01/23/19 10:32 OL (Rec: 01/23/19 10:34 OL [id number]) Nutrition Notes Need for Assessment generated from: MD Order,Education Initial or Follow up Brief Note Current Diagnosis Coronary Artery Disease,Stroke Current Diet No diet ordered Labs/Tests A1c 10.2 Subjective/Other Information RD consult for diet education. Pt. s/p stroke #1 Nutrition Diagnosis Food and nutrition-related knowledge deficit Etiology lack of exposure to nutrition related information As Evidenced by Signs and Symptoms pt. has never received DM diet education, pt. s/p stroke, A1c 10.2 Nutrition Intervention Teaching Recipient Patient Learning Readiness Good Teaching Methods Discussion,Handout Response to Teaching Verbalize understanding Education Handouts Provided CHO counting for people with DM Stroke MNT Barriers to Learning No Barriers RD phone number provided Yes Patient aware of follow up options Yes Revisit per MD consult or patient Sign Off request:
--- NOTE | 2019-01-26 16:38 | Discharge Summary ---
Providers - Providers Date of Admission: 01/21/19 23:08 Date of discharge: 01/26/19 Attending physician: MONSTER VALENCIA 01/21/19 23:51 Consult to Case Management [CONS] Routine Services Needed at Discharge: Physical Therapy Notified:: pillowcase maker Consult to Dietitian/Nutrition [CONS] Routine Physician Instructions: Reason For Exam: Reason for Consult: Diet education Consult to Dietitian/Nutrition [CONS] Routine Physician Instructions: Reason For Exam: Reason for Consult: Nutrition Recommendations Reason for Consult: Diet education Occupational Therapy Evaluate and Treat [CONS] Routine Comment: Reason For Exam: Neuro deficits Physical Therapy Evaluation and Treat [CONS] Routine Comment: Reason For Exam: Neuro deficits 01/22/19 03:51 Consult to Physician [CONS] Routine Comment: Consulting Provider: ILAN RIVERA Physician Instructions: Reason For Exam: cva Consult to Physician [CONS] Routine Comment: Consulting Provider: SANIA RAMIREZ Physician Instructions: Reason For Exam: cc 01/22/19 14:00 Speech Therapy Evaluation and Treat [CONS] Urgent Reason For Exam: stroke, needs swallow formal eval 01/23/19 11:34 Physical Therapy Evaluation and Treat [CONS] Routine Comment: Reason For Exam: Neuro deficits 01/24/19 09:25 Consult to Physician [CONS] Routine Comment: Consulting Provider: ART URIOSTEGUI Physician Instructions: Reason For Exam: carotid stenosis [facility] Reason for admission: Right-sided weakness Condition: Stable Pertinent studies: CT head without contrast; no acute abnormality; MRI brain ;no acute CVA, chronic infarct MRA of brain; proximal right ICA stenosis Carotid Doppler;Right 50-79%, Left less than 50% EchocardiogramEF 45-50%, bubble study negative Chest x-ray; no acute abnormality, possibly atelectasis right Hospital course: 63-year-old female with past medical history of prior CVA 2007, CAD/CABG 2007, A. fib, DM type II, hyperlipidemia, kidney disease was admitted through emergency room with right-sided weakness , the radiologist recommended TPA however patient refused Had extensive neuro workup as mentioned below ,Evaluated by neurology Received physical therapy occupational therapy Today patient is comfortable no new complaints , Vital signs stable , patient was managed with aspirin Plavix and statin Physical examination no new changes , Cleared by neurology , hemodynamically and clinically stable at discharge with home health Discharge diagnosis and management; --Acute CVA. TPA was suggested by the tele-neurologist. However, patient refused. MRI reveals no acute CVA or brain mass. Patient with stable chronic infarcts in the superior left parietal occipital watershed region and posterior left occipital lobe. MRA shows findings of occlusion of the left carotid bifurcation and proximal left ICA with distal reconstitution and or retrograde filling. 75% diameter stenosis proximal right ICA. Carotid Doppler reveals right ICA stenosis of 50-79%. Left carotid artery with RCA stent with no evidence of stenosis. And echocardiogram. Neurology consultation pending. PT/OT. Patient with history of CVA in 2006. CT scan of the brain that showed chronic infarct but no acute infarction or mass effect. --Right ICA stenosis. Vascular surgery consulted. --Accelerated hypertension. Cont. antihypertensives. --Atrial fibrillation. Rate controlled. --Diabetes mellitus type 2, uncontrolled. Continue Accu-Cheks and sliding scale insulin. Better controlled. Hemoglobin A1c 10.2. Cont. Lantus to 20 units at bedtime --Hyperlipidemia. Continue statin. --Anxiety disorder. Resume Xanax. Disposition. Home with home health Disposition: [id number]-[id number] HOME UNDER HOME [facility] Time spent for discharge: 32 min Core Measure Documentation - Palliative Care Palliative Care/ Comfort Measures: Not Applicable - Core Measures Any of the following diagnoses?: none Exam - Constitutional Vitals: Temp Pulse Resp BP Pulse Ox 98.0 F 75 18 171/59 97 01/26/19 11:59 01/26/19 13:00 01/26/19 11:59 01/26/19 11:59 01/26/19 04:32 General appearance: Present: no acute distress, well-nourished - EENT Eyes: Present: PERRL, EOM intact - Neck Neck: Present: supple, normal ROM - Respiratory Respiratory effort: normal Respiratory: bilateral: diminished, negative: rales, rhonchi, wheezing - Cardiovascular Rhythm: regular Heart Sounds: Present: S1 & S2 - Extremities Extremities: no ischemia, No edema - Abdominal General gastrointestinal: Present: soft, non-tender, non-distended, normal bowel sounds - Integumentary Integumentary: Present: clear, warm - Musculoskeletal Musculoskeletal: strength equal bilaterally - Psychiatric Psychiatric: appropriate mood/affect, cooperative - Neurologic Neurologic: other (residual weakness) Plan Activity: advance as tolerated, fall precautions Diet: diabetic, other (cardiac) Special Instructions: physical therapy Additional Instructions: Advised to follow psychiatrist per schedule. Advised to see private neurologist in 1-2 wks. Fall precautions Follow up with: DOUG BROWN MD [Primary Care Provider] - 7 Days KARLIE BECERRA DO [Staff Physician] - 7 Days VANESSA CABRERA MD [Staff Physician] - 7 Days Prescriptions: Aspirin EC [Aspirin Enteric Coated TAB] 81 mg PO QDAY #30 tablet Clopidogrel Bisulfate [Clopidogrel] 75 mg PO QDAY #30 tablet Insulin Glargine [Lantus VIAL] 10 units SUB-Q QHS 30 Days units Labetalol [Normodyne TAB] 200 mg PO BID #60 tablet Insulin Aspart [Novolog] See Protocol SQ AC 30 Days ml ALPRAZolam [Xanax TAB] 0.5 mg PO QAM PRN #7 tablet PRN Reason: Anxiety ALPRAZolam [Xanax TAB] 1 mg PO QHS PRN #7 tablet PRN Reason: Anxiety Other Discharge Orders: Glucometer (Amb) Location: None Selected Glucometer supplies[Amb] Location: None Selected
[2019-01-26 17:27] VITALS: BP 142/53
[2019-01-27] MEDS ORDERED: HALFPRIN EC PO SCH (10:00)
== END 2019-01-26 17:59 | disposition home health service (06) | DRG 65 ==
LOC: ED 21:12 → 4A 23:08 → CC1 01-22 03:48 → 4A 01-22 17:03
PROVIDERS: ADMIT Internal Medicine; ATTEND Internal Medicine
DX: I63.9 Cerebral infarction, unspecified (principal); I69.351 Hemiplegia and hemiparesis following cerebral infarction affecting right dominant side; J98.11 Atelectasis; I66.02 Occlusion and stenosis of left middle cerebral artery; I48.91 Unspecified atrial fibrillation; I25.10 Atherosclerotic heart disease of native coronary artery without angina pectoris; N18.9 Chronic kidney disease, unspecified; E11.22 Type 2 diabetes mellitus with diabetic chronic kidney disease; F32.9 Major depressive disorder, single episode, unspecified; I12.9 Hypertensive chronic kidney disease with stage 1 through stage 4 chronic kidney disease, or unspecified chronic kidney disease; F41.9 Anxiety disorder, unspecified; E86.0 Dehydration; Z95.1 Presence of aortocoronary bypass graft; Z82.3 Family history of stroke; Z82.49 Family history of ischemic heart disease and other diseases of the circulatory system; Z88.0 Allergy status to penicillin; Z91.041 Radiographic dye allergy status; Z88.2 Allergy status to sulfonamides; Z79.01 Long term (current) use of anticoagulants; Z79.899 Other long term (current) drug therapy; Z87.891 Personal history of nicotine dependence; Z83.3 Family history of diabetes mellitus; Z79.84 Long term (current) use of oral hypoglycemic drugs; Z90.710 Acquired absence of both cervix and uterus
CPT/HCPCS: 36415; 70450; 70544; 70548; 70551; 71046; 80048; 80061; 80307; 80320; 81001; 82550; 82553; 82962; 83036; 84484; 85025; 85610; 85670; 85730; 93005; 93010; 93306; 93880; 94760; 96374; G0378; A9270-GY; A9577; G0480; J0360; J1650; J1815; J7050